=== PATIENT | female | born 1950 | race Two or more races ===

== ENCOUNTER 2021-05-26 18:46 | Inpatient (IN) | payer MEDICARE ==
--- NOTE | 2021-05-26 20:24 | ED ---
SOB HPI - General Chief Complaint: Shortness of Breath Stated Complaint: SOB Time Seen by Provider: 05/26/21 20:11 Source: patient, RN notes reviewed Mode of arrival: ambulatory Limitations: physical limitation - History of Present Illness Initial Comments: This is a pleasant 71-year-old female with a history of hypertension. She presents to the emergency department today complaining of 10 days of worsening shortness of breath. Patient really denying any chest pain but states it feels like there is a catch in her chest at times. Patient has been going to physical therapy for general weakness and imbalance. Patient states that physical therapy she was having hard time breathing. Patient eventually was told to go to the ER which she refused. Patient follow-up with her regular physician early in the week and had a chest x-ray done. Patient was called today and told it was abnormal. Patient states she is fully vaccinated against COVID-19 including the booster shot. Denying any chest or abdominal pain. No nausea or vomiting. No significant cough. No hemoptysis. No changes in vomiting urination. No change in vision or hearing. No headache. Some generalized body aches with the patient states she usually has. Patient smoking college some 40 some years ago but nothing since. MD Complaint: shortness of breath - Related Data Home Medications Medication Instructions Recorded Confirmed Cholecalciferol [Vitamin D3 (25 50 mcg PO DAILY 05/26/21 05/26/21 Mcg = 1000 Iu)] Fish Oil/Dha/Epa [Fish Oil 1,200 1 cap PO DAILY 05/26/21 05/26/21 mg Fish Oil] Magnesium 500 mg PO DAILY 05/26/21 05/26/21 Omeprazole 20 mg PO DAILY 05/26/21 05/26/21 Oxybutynin ER [Ditropan Xl] 10 mg PO DAILY 05/26/21 05/26/21 Propranolol HCl 20 mg PO DAILY 05/26/21 05/26/21 Venlafaxine HCl ER [Effexor XR] 300 mg PO DAILY 05/26/21 05/26/21 buPROPion XL [Wellbutrin XL] 150 mg PO DAILY 05/26/21 05/26/21 traZODone HCL 100 mg PO HS 05/26/21 05/26/21 Previous Rx's Medication Instructions Recorded Apixaban [Eliquis] 10 mg PO BID #90 tab 05/30/21 Allergies Allergy/AdvReac Type Severity Reaction Status Date / Time azithromycin [From Zithromax] Allergy Anaphylaxis Verified 05/26/21 21:59 latex Allergy Rash/Hives Verified 05/26/21 21:59 Review of Systems ROS Statement: Those systems with pertinent positive or pertinent negative responses have been documented in the HPI. ROS Other: All systems not noted in ROS Statement are negative. Past Medical History Past Medical History: Hypertension Additional Past Medical History / Comment(s): LIME, liver problems History of Any Multi-Drug Resistant Organisms: None Reported Past Surgical History: Bladder Surgery, Joint Replacement Additional Past Surgical History / Comment(s): lt knee Past Psychological History: No Psychological Hx Reported Smoking Status: Never smoker Past Alcohol Use History: Occasional Past Drug Use History: Marijuana General Exam - General Exam Comments Initial Comments: 71-year-old female appears to be mild distress. Ill but not toxic. Vital signs reviewed Limitations: physical limitation General appearance: alert, in distress, obese Head exam: Present: atraumatic, normocephalic, normal inspection Eye exam: Present: normal appearance, PERRL, EOMI. Absent: scleral icterus, conjunctival injection, periorbital swelling ENT exam: Present: normal exam, mucous membranes moist Neck exam: Present: normal inspection. Absent: tenderness, meningismus, lymphadenopathy Respiratory exam: Present: normal lung sounds bilaterally, rales, accessory muscle use, other (Mild increased work of breathing. Patient on a nasal cannula satting in the low 90s.). Absent: respiratory distress, wheezes, rhonchi, stridor Cardiovascular Exam: Present: normal rhythm, tachycardia, normal heart sounds. Absent: systolic murmur, diastolic murmur, rubs, gallop, clicks GI/Abdominal exam: Present: soft, normal bowel sounds. Absent: distended, tenderness, guarding, rebound, rigid Extremities exam: Present: normal inspection, full ROM, normal capillary refill. Absent: tenderness, pedal edema, joint swelling, calf tenderness Back exam: Present: normal inspection Neurological exam: Present: alert, oriented X3, CN II-XII intact Psychiatric exam: Present: normal affect, normal mood Skin exam: Present: warm, dry, intact, normal color. Absent: rash Course Vital Signs 05/26/21 05/26/21 05/26/21 19:25 19:48 20:32 Temperature 97.9 F Pulse Rate 115 H 100 Respiratory 26 H 19 25 H Rate Blood Pressure 154/87 173/91 O2 Sat by Pulse 86 L 95 Oximetry 05/26/21 05/26/21 05/26/21 21:50 23:30 23:40 Temperature Pulse Rate 98 93 97 Respiratory 13 Rate Blood Pressure 167/92 152/100 184/91 O2 Sat by Pulse 91 L 94 L 95 Oximetry 05/27/21 00:10 Temperature Pulse Rate 93 Respiratory Rate Blood Pressure 154/91 O2 Sat by Pulse 93 L Oximetry - Reevaluation(s) Reevaluation #1: 05/26/21 21:51 Medical record is reviewed Patient has an elevated troponin I 0.084. CT Angio chest ordered. Patient is informed of results and questions answered Patient in no distress Reevaluation #2: 05/26/21 23:08 Medical record is reviewed Symptoms are improved here in the emergency department Patient is informed of results and questions answered Patient in no distress Medical Decision Making - Medical Decision Making Differential includes cardiovascular disease, pulmonary embolism, pneumonia, other infectious versus inflammatory etiology. Consultation placed for the internal medicine physician, Dr. Benedict The case was discussed in detail with ED attending physician. Presentation, findings, treatment plan discussed in detail. Case discussed in detail with the admitting physician. Requests consultation with pulmonary medicine. - Lab Data Result diagrams: 05/28/21 06:50 05/28/21 06:50 Lab Results 05/26/21 05/26/21 05/26/21 Range/Units 20:12 20:12 20:12 WBC 12.1 H (3.8-10.6) k/uL RBC 5.00 (3.80-5.40) m/uL Hgb 14.8 (11.4-16.0) gm/dL Hct 44.1 (34.0-46.0) % MCV 88.2 (80.0-100.0) fL MCH 29.6 (25.0-35.0) pg MCHC 33.6 (31.0-37.0) g/dL RDW 14.5 (11.5-15.5) % Plt Count 285 (150-450) k/uL MPV 7.7 Neutrophils % 77 % Lymphocytes % 14 % Monocytes % 5 % Eosinophils % 2 % Basophils % 0 % Neutrophils # 9.4 H (1.3-7.7) k/uL Lymphocytes # 1.6 (1.0-4.8) k/uL Monocytes # 0.6 (0-1.0) k/uL Eosinophils # 0.3 (0-0.7) k/uL Basophils # 0.1 (0-0.2) k/uL PT 10.0 (9.0-12.0) sec INR 0.9 (<1.2) APTT 22.9 (22.0-30.0) sec Sample Site ABG pH (7.35-7.45) ABG pCO2 (35-45) mmHg ABG pO2 (83-108) mmHg ABG HCO3 (21-25) mmol/L ABG Total CO2 (19-24) mmol/L ABG O2 Saturation (94-97) % ABG Base Excess mmol/L Tyler Test FiO2 % Sodium 140 (137-145) mmol/L Potassium 4.0 (3.5-5.1) mmol/L Chloride 107 (98-107) mmol/L Carbon Dioxide 24 (22-30) mmol/L Anion Gap 9 mmol/L BUN 22 H (7-17) mg/dL Creatinine 0.62 (0.52-1.04) mg/dL Est GFR (CKD-EPI)AfAm >90 (>60 ml/min/1.73 sqM) Est GFR (CKD-EPI)NonAf 90 (>60 ml/min/1.73 sqM) Glucose 117 H (74-99) mg/dL Plasma Lactic Acid Ji (0.7-2.0) mmol/L Calcium 10.2 (8.4-10.2) mg/dL Magnesium 1.9 (1.6-2.3) mg/dL Total Bilirubin 1.1 (0.2-1.3) mg/dL AST 30 (14-36) U/L ALT 31 (4-34) U/L Alkaline Phosphatase 80 (38-126) U/L Troponin I (0.000-0.034) ng/mL NT-Pro-B Natriuret Pep pg/mL Total Protein 7.7 (6.3-8.2) g/dL Albumin 4.7 (3.5-5.0) g/dL Coronavirus (PCR) (Not Detectd) Influenza Type A RNA (Not Detectd) Influenza Type B (PCR) (Not Detectd) 01/27/22 01/27/22 01/27/22 Range/Units 20:12 20:12 20:12 WBC (3.8-10.6) k/uL RBC (3.80-5.40) m/uL Hgb (11.4-16.0) gm/dL Hct (34.0-46.0) % MCV (80.0-100.0) fL MCH (25.0-35.0) pg MCHC (31.0-37.0) g/dL RDW (11.5-15.5) % Plt Count (150-450) k/uL MPV Neutrophils % % Lymphocytes % % Monocytes % % Eosinophils % % Basophils % % Neutrophils # (1.3-7.7) k/uL Lymphocytes # (1.0-4.8) k/uL Monocytes # (0-1.0) k/uL Eosinophils # (0-0.7) k/uL Basophils # (0-0.2) k/uL PT (9.0-12.0) sec INR (<1.2) APTT (22.0-30.0) sec Sample Site ABG pH (7.35-7.45) ABG pCO2 (35-45) mmHg ABG pO2 (83-108) mmHg ABG HCO3 (21-25) mmol/L ABG Total CO2 (19-24) mmol/L ABG O2 Saturation (94-97) % ABG Base Excess mmol/L Tyler Test FiO2 % Sodium (137-145) mmol/L Potassium (3.5-5.1) mmol/L Chloride (98-107) mmol/L Carbon Dioxide (22-30) mmol/L Anion Gap mmol/L BUN (7-17) mg/dL Creatinine (0.52-1.04) mg/dL Est GFR (CKD-EPI)AfAm (>60 ml/min/1.73 sqM) Est GFR (CKD-EPI)NonAf (>60 ml/min/1.73 sqM) Glucose (74-99) mg/dL Plasma Lactic Acid Ji 1.1 (0.7-2.0) mmol/L Calcium (8.4-10.2) mg/dL Magnesium (1.6-2.3) mg/dL Total Bilirubin (0.2-1.3) mg/dL AST (14-36) U/L ALT (4-34) U/L Alkaline Phosphatase (38-126) U/L Troponin I 0.084 H* (0.000-0.034) ng/mL NT-Pro-B Natriuret Pep 538 pg/mL Total Protein (6.3-8.2) g/dL Albumin (3.5-5.0) g/dL Coronavirus (PCR) (Not Detectd) Influenza Type A RNA (Not Detectd) Influenza Type B (PCR) (Not Detectd) 05/26/21 05/26/21 05/26/21 Range/Units 20:13 20:13 20:41 WBC (3.8-10.6) k/uL RBC (3.80-5.40) m/uL Hgb (11.4-16.0) gm/dL Hct (34.0-46.0) % MCV (80.0-100.0) fL MCH (25.0-35.0) pg MCHC (31.0-37.0) g/dL RDW (11.5-15.5) % Plt Count (150-450) k/uL MPV Neutrophils % % Lymphocytes % % Monocytes % % Eosinophils % % Basophils % % Neutrophils # (1.3-7.7) k/uL Lymphocytes # (1.0-4.8) k/uL Monocytes # (0-1.0) k/uL Eosinophils # (0-0.7) k/uL Basophils # (0-0.2) k/uL PT (9.0-12.0) sec INR (<1.2) APTT (22.0-30.0) sec Sample Site R radial ABG pH 7.46 H (7.35-7.45) ABG pCO2 35 (35-45) mmHg ABG pO2 70 L (83-108) mmHg ABG HCO3 25 (21-25) mmol/L ABG Total CO2 26 H (19-24) mmol/L ABG O2 Saturation 95.0 (94-97) % ABG Base Excess 1.0 mmol/L Tyler Test Yes FiO2 28 % Sodium (137-145) mmol/L Potassium (3.5-5.1) mmol/L Chloride (98-107) mmol/L Carbon Dioxide (22-30) mmol/L Anion Gap mmol/L BUN (7-17) mg/dL Creatinine (0.52-1.04) mg/dL Est GFR (CKD-EPI)AfAm (>60 ml/min/1.73 sqM) Est GFR (CKD-EPI)NonAf (>60 ml/min/1.73 sqM) Glucose (74-99) mg/dL Plasma Lactic Acid Ji (0.7-2.0) mmol/L Calcium (8.4-10.2) mg/dL Magnesium (1.6-2.3) mg/dL Total Bilirubin (0.2-1.3) mg/dL AST (14-36) U/L ALT (4-34) U/L Alkaline Phosphatase (38-126) U/L Troponin I (0.000-0.034) ng/mL NT-Pro-B Natriuret Pep pg/mL Total Protein (6.3-8.2) g/dL Albumin (3.5-5.0) g/dL Coronavirus (PCR) Not Detected (Not Detectd) Influenza Type A RNA Not Detected (Not Detectd) Influenza Type B (PCR) Not Detected (Not Detectd) 05/26/21 05/27/21 05/27/21 Range/Units 23:33 01:39 06:44 WBC 8.1 (3.8-10.6) k/uL RBC 4.56 (3.80-5.40) m/uL Hgb 13.6 (11.4-16.0) gm/dL Hct 40.6 (34.0-46.0) % MCV 89.1 (80.0-100.0) fL MCH 29.9 (25.0-35.0) pg MCHC 33.6 (31.0-37.0) g/dL RDW 15.1 (11.5-15.5) % Plt Count 201 (150-450) k/uL MPV 8.0 Neutrophils % 75 % Lymphocytes % 16 % Monocytes % 6 % Eosinophils % 2 % Basophils % 0 % Neutrophils # 6.0 (1.3-7.7) k/uL Lymphocytes # 1.3 (1.0-4.8) k/uL Monocytes # 0.5 (0-1.0) k/uL Eosinophils # 0.2 (0-0.7) k/uL Basophils # 0.0 (0-0.2) k/uL PT (9.0-12.0) sec INR (<1.2) APTT (22.0-30.0) sec Sample Site ABG pH (7.35-7.45) ABG pCO2 (35-45) mmHg ABG pO2 (83-108) mmHg ABG HCO3 (21-25) mmol/L ABG Total CO2 (19-24) mmol/L ABG O2 Saturation (94-97) % ABG Base Excess mmol/L Tyler Test FiO2 % Sodium (137-145) mmol/L Potassium (3.5-5.1) mmol/L Chloride (98-107) mmol/L Carbon Dioxide (22-30) mmol/L Anion Gap mmol/L BUN (7-17) mg/dL Creatinine (0.52-1.04) mg/dL Est GFR (CKD-EPI)AfAm (>60 ml/min/1.73 sqM) Est GFR (CKD-EPI)NonAf (>60 ml/min/1.73 sqM) Glucose (74-99) mg/dL Plasma Lactic Acid Ji (0.7-2.0) mmol/L Calcium (8.4-10.2) mg/dL Magnesium (1.6-2.3) mg/dL Total Bilirubin (0.2-1.3) mg/dL AST (14-36) U/L ALT (4-34) U/L Alkaline Phosphatase (38-126) U/L Troponin I 0.071 H* 0.057 H* (0.000-0.034) ng/mL NT-Pro-B Natriuret Pep pg/mL Total Protein (6.3-8.2) g/dL Albumin (3.5-5.0) g/dL Coronavirus (PCR) (Not Detectd) Influenza Type A RNA (Not Detectd) Influenza Type B (PCR) (Not Detectd) 05/27/21 Range/Units 06:44 WBC (3.8-10.6) k/uL RBC (3.80-5.40) m/uL Hgb (11.4-16.0) gm/dL Hct (34.0-46.0) % MCV (80.0-100.0) fL MCH (25.0-35.0) pg MCHC (31.0-37.0) g/dL RDW (11.5-15.5) % Plt Count (150-450) k/uL MPV Neutrophils % % Lymphocytes % % Monocytes % % Eosinophils % % Basophils % % Neutrophils # (1.3-7.7) k/uL Lymphocytes # (1.0-4.8) k/uL Monocytes # (0-1.0) k/uL Eosinophils # (0-0.7) k/uL Basophils # (0-0.2) k/uL PT (9.0-12.0) sec INR (<1.2) APTT (22.0-30.0) sec Sample Site ABG pH (7.35-7.45) ABG pCO2 (35-45) mmHg ABG pO2 (83-108) mmHg ABG HCO3 (21-25) mmol/L ABG Total CO2 (19-24) mmol/L ABG O2 Saturation (94-97) % ABG Base Excess mmol/L Tyler Test FiO2 % Sodium 137 (137-145) mmol/L Potassium 3.8 (3.5-5.1) mmol/L Chloride 106 (98-107) mmol/L Carbon Dioxide 25 (22-30) mmol/L Anion Gap 6 mmol/L BUN 20 H (7-17) mg/dL Creatinine 0.61 (0.52-1.04) mg/dL Est GFR (CKD-EPI)AfAm >90 (>60 ml/min/1.73 sqM) Est GFR (CKD-EPI)NonAf >90 (>60 ml/min/1.73 sqM) Glucose 143 H (74-99) mg/dL Plasma Lactic Acid Ji (0.7-2.0) mmol/L Calcium 9.2 (8.4-10.2) mg/dL Magnesium 1.7 (1.6-2.3) mg/dL Total Bilirubin 1.3 (0.2-1.3) mg/dL AST 26 (14-36) U/L ALT 27 (4-34) U/L Alkaline Phosphatase 77 (38-126) U/L Troponin I (0.000-0.034) ng/mL NT-Pro-B Natriuret Pep pg/mL Total Protein 6.8 (6.3-8.2) g/dL Albumin 3.9 (3.5-5.0) g/dL Coronavirus (PCR) (Not Detectd) Influenza Type A RNA (Not Detectd) Influenza Type B (PCR) (Not Detectd) - EKG Data EKG Comments: EKG reveals sinus tachycardia with a rate of 103. Possible left atrial enlargement. Baseline artifact. Normal intervals. Left axis deviation. Poor R-wave progression. Nonspecific ST changes, EKG reviewed with the ED attending physician, Dr. Edwards Disposition Clinical Impression: Pulmonary embolism, Respiratory distress, Hypoxemia, Elevated troponin Disposition: ADMITTED IP TO THIS HOSP Condition: Stable Decision to Admit Reason: Admit from EC Decision Time: 23:21
[2021-05-26 20:40] LABS: Basophils # (A) 0.1 k/uL (0-0.2); Basophils % (A) 0 %; Eosinophils # (A) 0.3 k/uL (0-0.7); Eosinophils % (A) 2 %; HCT 44.1 % (34.0-46.0); HGB 14.8 gm/dL (11.4-16.0); Lymphocytes # (A) 1.6 k/uL (1.0-4.8); Lymphocytes % (A) 14 %; MCH 29.6 pg (25.0-35.0); MCHC 33.6 g/dL (31.0-37.0); MCV 88.2 fL (80.0-100.0); Mean Platelet Volume 7.7; Monocytes # (A) 0.6 k/uL (0-1.0); Monocytes % (A) 5 %; Neutrophils # (A) 9.4 k/uL (1.3-7.7); Neutrophils % (A) 77 %; Platelet Count 285 k/uL (150-450); RDW 14.5 % (11.5-15.5); WBC 12.1 k/uL (3.8-10.6)
[2021-05-26 20:44] LABS: Allen Test Performed? Yes
[2021-05-26 20:51] LABS: INR 0.9 (<1.2); Partial Thromboplastin Time 22.9 sec (22.0-30.0)
[2021-05-26 20:52] LABS: ALT 31 U/L (4-34); AST 30 U/L (14-36); African American GFR (CKD) >90 (>60 ml/min/1.73 sqM); Albumin 4.7 g/dL (3.5-5.0); Alkaline Phosphatase 80 U/L (38-126); Anion Gap 9 mmol/L; Blood Urea Nitrogen 22 mg/dL (7-17); Calcium 10.2 mg/dL (8.4-10.2); Carbon Dioxide 24 mmol/L (22-30); Chloride 107 mmol/L (98-107); Glucose 117 mg/dL (74-99); Magnesium 1.9 mg/dL (1.6-2.3); Non-African American GFR(CKD) 90 (>60 ml/min/1.73 sqM); Sodium 140 mmol/L (137-145); Total Bilirubin 1.1 mg/dL (0.2-1.3); Total Protein 7.7 g/dL (6.3-8.2)
[2021-05-26 21:05] LABS: ABG HCO3 25 mmol/L (21-25); ABG PCO2 35 mmHg (35-45); ABG PH 7.46 (7.35-7.45); ABG PO2 70 mmHg (83-108); ABG TCO2 26 mmol/L (19-24)
[2021-05-26] MEDS ORDERED: ASPIRIN 81 MG PO STA (21:28)
--- NOTE | 2021-05-26 21:42 | XR ---
EXAMINATION: XR chest 1V portable DATE AND TIME: 05/26/2021 8:37 PM CLINICAL INDICATION: PHH; Dyspnea TECHNIQUE: AP upright portable COMPARISON: None FINDINGS: The overlying soft tissues are prominent. The lungs are clear. The pleural spaces are negative. The cardiac silhouette is not enlarged. The remainder of the mediastinal silhouette is unremarkable. The skeletal structures and soft tissues are negative for acute findings. IMPRESSION: NO ACUTE PROCESS.
--- NOTE | 2021-05-26 22:32 | CT ---
EXAMINATION TYPE: CT angio chest DATE OF EXAM: 05/26/2021 COMPARISON: None HISTORY: sob CT DLP: 771.7 mGycm Automated exposure control for dose reduction was used. CONTRAST: Performed with IV Contrast, patient injected with 100 mL of Isovue 370. Images obtained from the thoracic inlet to the diaphragm with IV contrast. FINDINGS: There is some mild increased interstitial density in the posterior lung wilson. There is no pulmonary consolidation. There is no evidence of a pulmonary mass. There are multiple filling defects in the lower lobe pulmonary arteries bilaterally. There is also fi lling defect in the lingula left upper lobe pulmonary artery. Heart size is fairly normal. There is no pericardial effusion. There is no pleural effusion. Thoracic spine is intact. There is no compression fracture. Sternum is intact. IMPRESSION: Multiple bilateral pulmonary emboli. No evidence of right heart strain.
[2021-05-26] MEDS ORDERED: ENOXAPARIN 40 MG/0.4 ML SYRINGE SQ SCH (22:45)
[2021-05-26] MEDS ORDERED: ACETAMINOPHEN TAB 325 MG TAB PO PRN (23:23)
[2021-05-26] MEDS ORDERED: ONDANSETRON 4 MG/2 ML VIAL IVP PRN (23:23)
[2021-05-26] MEDS ORDERED: NALOXONE 0.4 MG/ML 1 ML VIAL IV PRN (23:23)
[2021-05-26] MEDS ORDERED: MORPHINE SULFATE 4 MG/ML SYRINGE IV PRN (23:23)
[2021-05-26] MEDS ORDERED: PANTOPRAZOLE 40 MG/10 ML VIAL IV SCH (23:30)
[2021-05-27] MEDS: PANTOPRAZOLE 40 MG TABLET PO SCH (06:41)
[2021-05-27 07:38] LABS: Basophils % (A) 0 %; Eosinophils # (A) 0.2 k/uL (0-0.7); Eosinophils % (A) 2 %; HCT 40.6 % (34.0-46.0); HGB 13.6 gm/dL (11.4-16.0); Lymphocytes # (A) 1.3 k/uL (1.0-4.8); Lymphocytes % (A) 16 %; MCH 29.9 pg (25.0-35.0); MCHC 33.6 g/dL (31.0-37.0); MCV 89.1 fL (80.0-100.0); Monocytes # (A) 0.5 k/uL (0-1.0); Monocytes % (A) 6 %; Neutrophils % (A) 75 %; Platelet Count 201 k/uL (150-450); RBC 4.56 m/uL (3.80-5.40); RDW 15.1 % (11.5-15.5); WBC 8.1 k/uL (3.8-10.6)
[2021-05-27 08:05] LABS: ALT 27 U/L (4-34); AST 26 U/L (14-36); African American GFR (CKD) >90 (>60 ml/min/1.73 sqM); Albumin 3.9 g/dL (3.5-5.0); Alkaline Phosphatase 77 U/L (38-126); Anion Gap 6 mmol/L; Blood Urea Nitrogen 20 mg/dL (7-17); Calcium 9.2 mg/dL (8.4-10.2); Carbon Dioxide 25 mmol/L (22-30); Chloride 106 mmol/L (98-107); Magnesium 1.7 mg/dL (1.6-2.3); Non-African American GFR(CKD) >90 (>60 ml/min/1.73 sqM); Potassium 3.8 mmol/L (3.5-5.1); Sodium 137 mmol/L (137-145); Total Bilirubin 1.3 mg/dL (0.2-1.3); Total Protein 6.8 g/dL (6.3-8.2)
[2021-05-27 08:07] LABS: Glucose 143 mg/dL (74-99)
[2021-05-27] MEDS: CHOLECALCIFEROL 25 MCG (1000 IU) TABLET PO SCH (08:24)
[2021-05-27] MEDS: VENLAFAXINE HCL ER 150 MG CAP PO SCH (08:24)
[2021-05-27] MEDS: buPROPion XL 150 MG TAB.ER.24H PO SCH (08:24)
[2021-05-27] MEDS: ENOXAPARIN 100 MG/ML SYRINGE SQ SCH ×2 (08:24→20:50)
[2021-05-27] MEDS: OXYBUTYNIN 10 MG TAB.ER.24 PO SCH (08:24)
[2021-05-27] MEDS: MAGNESIUM OXIDE 400 MG TAB PO SCH (08:25)
[2021-05-27] MEDS: PROPRANOLOL 20 MG TAB PO SCH (08:25)
[2021-05-27] MEDS ORDERED: NON FORMULARY DRUG (Fish Oil/Dha/Epa [Fish Oil 1,200 Mg Fish Oil] 1 EACH Capsule) PO SCH (09:00)
--- NOTE | 2021-05-27 11:39 | ECHOF ---
Referral Reason:lvfunction MEASUREMENTS -------- HEIGHT: 160.0 cm WEIGHT: 99.8 kg BP: 152/92 IVSd: 1.5 cm (0.6 - 1.1) LVIDd: 4.0 cm (3.9 - 5.3) LVPWd: 1.5 cm (0.6 - 1.1) EDV(Teich): 70 ml IVSs: 1.9 cm LVIDs: 2.8 cm LVPWs: 1.8 cm %IVS Thck: 26 % ESV(Teich): 30 ml EF(Teich): 57 % %FS: 29 % SV(Teich): 40 ml LA Diam: 3.7 cm (2.7 - 3.8) RVIDd: 3.7 cm (< 3.3) LALs A4C: 5.3 cm LAAs A4C: 17.6 cm LAESV A-L A4C: 50 ml LAESV MOD A4C: 47 ml LALs A2C: 5.3 cm LAAs A2C: 19.5 cm LAESV A-L A2C: 61 ml LAESV MOD A2C: 58 ml LAESV(A-L): 55 ml LAESV Index (A-L): 27.37 ml/m Ao Diam: 3.0 cm (2.0 - 3.7) AV Cusp: 2.3 cm (1.5 - 2.6) EPSS: 0.8 cm MV E Deven: 0.62 m/s MV DecT: 148 ms MV Dec [place]: 4.2 m/s MV A Deven: 1.10 m/s MV E/A Ratio: 0.57 MV PHT: 43 ms AV Vmax: 1.30 m/s AV maxP.77 mmHg TR Vmax: 3.53 m/s TR maxP.76 mmHg RAP: 5.00 mmHg RVSP: 54.76 mmHg MV EF SLOPE: 109.83 mm/s (70 - 150) MV EXCURSION: 19.44 mm (> 18.000) RV S Prime: 0.09 m/s TAPSE: 12.10 mm FINDINGS -------- Sinus rhythm. This was a technically adequate study. The left ventricular size is normal. There is moderate concentric left ventricular hypertrophy. O verall left ventricular systolic function is normal with, an EF between 60 - 65 %. The right ventricle is mild to moderately enlarged. Normal LA size by volume 22+/-6 ml/m2. The right atrium is normal in size. Interatrial and interventricular septum intact. The aortic valve is trileaflet, and appears structurally normal. No aortic stenosis or regurgitation. There is trace to mild mitral regurgitation. Mild tricuspid regurgitation present. There is severe pulmonary hypertension. The right ventricul ar systolic pressure, as measured by Doppler, is 54.76mmHg. The pulmonic valve is normal. The aortic root size is normal. IVC Not well visulized. There is no pericardial effusion. CONCLUSIONS -------- 1. The left ventricular size is normal. 2. There is moderate concentric left ventricular hypertrophy. 3. Overall left ventricular systolic function is normal with, an EF between 60 - 65 %. 4. The right ventricle is mild to moderately enlarged. 5. The aortic valve is trileaflet, and appears structurally normal. No aortic stenosis or regurgitati on. 6. There is trace to mild mitral regurgitation. 7. Mild tricuspid regurgitation present. 8. There is severe pulmonary hypertension. 9. The right ventricular systolic pressure, as measured by Doppler, is 54.76mmHg. 10. There is no pericardial effusion. TERMINAL SUPERVISOR: Di Reyes RDCS
--- NOTE | 2021-05-27 12:03 | US ---
EXAMINATION TYPE: US venous doppler duplex LE BI DATE OF EXAM: 05/27/2021 11:01 AM COMPARISON: NONE CLINICAL HISTORY: 71-year-old female with pulmonary embolus. Assess for potential source with any manasa t in the legs. SIDE PERFORMED: Bilateral TECHNIQUE: The lower extremity deep venous system is examined utilizing real time linear array sonog valdemar with graded compression, doppler sonography and color-flow sonography. FINDINGS: VESSELS IMAGED: Common Femoral Vein Deep Femoral Vein Greater Saphenous Vein * Femoral Vein Popliteal Vein Small Saphenous Vein * Proximal Calf Veins (* superficial vessels) Right Leg: Negative for DVT Left Leg: Negative for DVT IMPRESSION: No evidence for DVT within the bilateral lower extremities imaged from the groin to the upper calves.
--- NOTE | 2021-05-27 12:20 | P.CRDCN ---
History of Present Illness Consult date: 05/27/21 History of present illness: HISTORY OF PRESENT ILLNESS: This is a 71-year-old female with a past medical history significant for nonischemic cardiomyopathy with a previous EF of 20% following an episode of bronchitis with recovery of her LV function. Patient states her last two echos at her cardiology office have been normal. Patient follows with Dr. Valencia in [place]. We have been asked to see the patient in consultation for abnormal troponins. Patient examined at the bedside. Patient states she has have worsening shortness of breath over the past 10 days. She denies any recent illness. Patient was found to have bilateral pulmonary embolisms. Patient denies any history of DVT or PE. She denies any prolonged immobility or travel. Denies any family history of clotting disorders. Denies history of cancer. Patient denies any history of Covid. Patient states she did receive her vaccine and her booster. She received the booster in February 2021. EKG reveals sinus tachycardia with nonspecific ST-T wave changes Chest xray negative for acute process Chest CT: Multiple bilateral pulmonary emboli. No evidence of right heart strain Laboratory data: The WBC 8.1. Hemoglobin 13.6. Platelet count 201. Sodium 137. Potassium 3.8. BUN 20. Creatinine 0.61. ProBNP 538. Troponin 0.084. 0.071. 0.057. Current home cardiac medications include propanolol 20 mg daily and aspirin 325 mg daily REVIEW OF SYSTEMS: At the time of my exam: CONSTITUTIONAL: Denies fever or chills. HEENT: Denies blurred vision, vision changes, or eye pain. Denies hemoptysis CARDIOVASCULAR: Denies chest pain. Denies orthopnea. Denies PND. Denies palpitations RESPIRATORY: Denies shortness of breath. GASTROINTESTINAL: Denies abdominal pain. Denies nausea or vomiting. HEMATOLOGIC: Denies bleeding disorders. GENITOURINARY: Denies any blood in urine. SKIN: Denies pruitis. Denies rash. PHYSICAL EXAM: VITAL SIGNS: Reviewed. GENERAL: Well-developed in no acute distress. HEENT: Head is normocephalic. Pupils are equal, round. Sclerae anicteric. Mucous membranes of the mouth are moist. Neck supple. No JVD or thyromegaly LUNGS: Respirations even and unlabored. Lungs essentially clear to auscultation bilaterally. HEART: Regular rate and rhythm. S1 and S2 heard. ABDOMEN: Soft. Nondistended. Nontender. EXTREMITIES: Normal range of motion. No clubbing or cyanosis. Peripheral pulses intact. No lower extremity edema NEUROLOGIC: Awake and alert. Oriented x 3. ASSESSMENT: Shortness of breath Bilateral pulmonary emboli Abnormal troponins, secondary to above History of nonischemic cardiomyopathy with EF of 20%, with subsequent recovery of LV function PLAN: Obtain 2D echo to assess cardiac structure and function. Rule out right out strain. Continue Lovenox. Do not transition to oral anticoagulation until echo is performed Further recommendations pending patient course Nurse practitioner note has been reviewed by physician. Signing provider agrees with the documented findings, assessment, and plan of care. Past Medical History Past Medical History: Hypertension Additional Past Medical History / Comment(s): [facility] [place], liver problems History of Any Multi-Drug Resistant Organisms: None Reported Past Surgical History: Bladder Surgery, Joint Replacement Additional Past Surgical History / Comment(s): lt knee Past Anesthesia/Blood Transfusion Reactions: No Reported Reaction Past Psychological History: Depression Smoking Status: Former smoker Past Alcohol Use History: Occasional Additional Past Alcohol Use History / Comment(s): Pt states she somked briefly in college. No smoking since then. Past Drug Use History: Marijuana Additional Drug Use History / Comment(s): Pt states she uses marijuana occasi onally. Medications and Allergies Home Medications Medication Instructions Recorded Confirmed Type Aspirin EC [Ecotrin] 325 mg PO DAILY 05/26/21 05/26/21 History Cholecalciferol [Vitamin D3 (25 50 mcg PO DAILY 05/26/21 05/26/21 History Mcg = 1000 Iu)] Fish Oil/Dha/Epa [Fish Oil 1,200 1 cap PO DAILY 05/26/21 05/26/21 History mg Fish Oil] Magnesium 500 mg PO DAILY 05/26/21 05/26/21 History Omeprazole 20 mg PO DAILY 05/26/21 05/26/21 History Oxybutynin ER [Ditropan Xl] 10 mg PO DAILY 05/26/21 05/26/21 History Propranolol HCl 20 mg PO DAILY 05/26/21 05/26/21 History Venlafaxine HCl ER [Effexor Xr] 300 mg PO DAILY 05/26/21 05/26/21 History buPROPion XL [Wellbutrin XL] 150 mg PO DAILY 05/26/21 05/26/21 History traZODone HCL 100 mg PO HS 05/26/21 05/26/21 History Allergies Allergy/AdvReac Type Severity Reaction Status Date / Time azithromycin [From Zithromax] Allergy Anaphylaxis Verified 05/26/21 21:59 latex Allergy Rash/Hives Verified 05/26/21 21:59 Physical Exam Vitals: Vital Signs Temp Pulse Pulse Resp BP BP Pulse Ox 05/27/21 07:55 97.9 F 92 18 158/82 94 L 05/27/21 04:00 98.3 F 94 18 152/92 94 L 05/27/21 02:00 98.3 F 88 18 163/89 93 L 05/27/21 00:10 93 154/91 93 L 05/26/21 23:40 97 184/91 95 05/26/21 23:30 93 152/100 94 L 05/26/21 21:50 98 13 167/92 91 L 05/26/21 20:32 100 25 H 173/91 95 05/26/21 19:48 19 05/26/21 19:25 97.9 F 115 H 26 H 154/87 86 L Intake and Output 05/26/21 05/27/21 05/27/21 22:59 06:59 14:59 Intake Total 10 240 Balance 10 240 Intake: IV 10 Invasive Line 1 10 Oral 240 Other: Voiding Method Toilet # Voids 1 1 Weight 99.79 kg 99.79 kg Results 05/27/21 06:44 05/27/21 06:44 Cardiac Enzymes 05/26/21 05/26/21 05/26/21 Range/Units 20:12 20:12 23:33 AST 30 (14-36) U/L Troponin I 0.084 H* 0.071 H* (0.000-0.034) ng/mL 05/27/21 05/27/21 Range/Units 01:39 06:44 AST 26 (14-36) U/L Troponin I 0.057 H* (0.000-0.034) ng/mL Coagulation 05/26/21 Range/Units 20:12 PT 10.0 (9.0-12.0) sec APTT 22.9 (22.0-30.0) sec CBC 01/27/22 01/28/22 Range/Units 20:12 06:44 WBC 12.1 H 8.1 (3.8-10.6) k/uL RBC 5.00 4.56 (3.80-5.40) m/uL Hgb 14.8 13.6 (11.4-16.0) gm/dL Hct 44.1 40.6 (34.0-46.0) % Plt Count 285 201 (150-450) k/uL Comprehensive Metabolic Panel 05/26/21 05/27/21 Range/Units 20:12 06:44 Sodium 140 137 (137-145) mmol/L Potassium 4.0 3.8 (3.5-5.1) mmol/L Chloride 107 106 (98-107) mmol/L Carbon Dioxide 24 25 (22-30) mmol/L BUN 22 H 20 H (7-17) mg/dL Creatinine 0.62 0.61 (0.52-1.04) mg/dL Glucose 117 H 143 H (74-99) mg/dL Calcium 10.2 9.2 (8.4-10.2) mg/dL AST 30 26 (14-36) U/L ALT 31 27 (4-34) U/L Alkaline Phosphatase 80 77 (38-126) U/L Total Protein 7.7 6.8 (6.3-8.2) g/dL Albumin 4.7 3.9 (3.5-5.0) g/dL Current Medications Generic Name Dose Route Start Last Admin Trade Name Freq PRN Reason Stop Dose Admin Acetaminophen 650 mg 05/26/21 23:23 Acetaminophen Tab 325 Mg Tab PO Q6HR PRN Mild Pain or Fever > 100.5 Bupropion HCl 150 mg 05/27/21 09:00 05/27/21 08:24 Bupropion Xl 150 Mg Tab.Er.24h PO 150 mg DAILY AGUSTINA Administration Cholecalciferol 50 mcg 05/27/21 09:00 05/27/21 08:24 Cholecalciferol 25 Mcg (1000 Iu) Tablet PO 50 mcg DAILY AGUSTINA Administration Enoxaparin Sodium 100 mg 05/27/21 09:00 05/27/21 08:24 Enoxaparin 100 Mg/Ml Syringe SQ 100 mg Q12HR AGUSTINA Administration Magnesium Oxide 400 mg 05/27/21 09:00 05/27/21 08:25 Magnesium Oxide 400 Mg Tab PO 400 mg DAILY AGUSTINA Administration Morphine Sulfate 4 mg 05/26/21 23:23 Morphine Sulfate 4 Mg/Ml Syringe IV Q4HR PRN Severe Pain Naloxone HCl 0.2 mg 05/26/21 23:23 Naloxone 0.4 Mg/Ml 1 Ml Vial IV Q2M PRN Opioid Reversal Ondansetron HCl 4 mg 05/26/21 23:23 Ondansetron 4 Mg/2 Ml Vial IVP Q8HR PRN Nausea And Vomiting Oxybutynin Chloride 10 mg 05/27/21 09:00 05/27/21 08:24 Oxybutynin 10 Mg Tab.Er.24 PO 10 mg DAILY AGUSTINA Administration Pantoprazole Sodium 40 mg 05/26/21 23:30 05/26/21 23:50 Pantoprazole 40 Mg/10 Ml Vial IV 40 mg HS AGUSTINA Administration Pantoprazole Sodium 40 mg 05/27/21 07:30 05/27/21 06:41 Pantoprazole 40 Mg Tablet PO 40 mg [id number] AGUSTINA Administration Propranolol HCl 20 mg 05/27/21 09:00 05/27/21 08:25 Propranolol 20 Mg Tab PO 20 mg DAILY AGUSTINA Administration Trazodone HCl 100 mg 05/27/21 21:00 Trazodone Hcl 100 Mg Tab PO HS AGUSTINA Venlafaxine HCl 300 mg 05/27/21 09:00 05/27/21 08:24 Venlafaxine Hcl Er 150 Mg Cap PO 300 mg DAILY AGUSTINA Administration Intake and Output 05/26/21 05/27/21 05/27/21 22:59 06:59 14:59 Intake Total 10 240 Balance 10 240 Intake: IV 10 Invasive Line 1 10 Oral 240 Other: Voiding Method Toilet # Voids 1 1 Weight 99.79 kg 99.79 kg 05/27/21 06:44 05/27/21 06:44
--- NOTE | 2021-05-27 12:24 | P.HPIM ---
History of Present Illness H&P Date: 05/27/21 HISTORY OF PRESENT ILLNESS This is a 71-year-old female patient of Dr. Stoll with past medical history of hypertension, memory loss, gastroesophageal reflux disease, thyroid nodule, degenerative disc disease or spinal stenosis under the care of Dr. Ribeiro, neurologist in [place], status post steroid injections. Patient states that 1 week ago on Sunday she started having shortness of breath and saw her PCP had her blood pressure checked an x-ray of her chest was done last . She had a follow-up yesterday and was told that the chest x-ray showed a left lower lobe shadow. Patient was then sent in to the hospital for further evaluation. She does have history of driving to [place] after she received the Covid vaccine in February 2021. She denies any history of having Covid 19. Patient was found to be afebrile, heart rate 115, respiratory rate 26, blood pressure 154/87 and pulse ox 96% on room air. WBC 12.1 otherwise CBC was unremarkable. ABGs pH 7.46, pCO2 35, pO2 70, bicarb 25, total CO2 26, O2 saturation 95, base excess 1, FiO2 28. All joints were normal, BUN 22 and creatinine 0.62. Blood sugar 117. Lactic acid 1.1. Calcium 10.2, magnesium 1.9. Liver function tests were normal. Troponins 0.084, 0.071 and 0.057. Chronic virus, influenza A, influenza B all not detected. Chest x-ray reveals no acute process. CTA of the chest was positive for multiple bilateral pulmonary emboli. No evidence of right heart strain. Echocardiogram reveals EF of 60-65% with moderate left and hypertrophy, trace to mild mitral regurgitation, mild tricuspid regurgitation, severe pulmonary hypertension, RVSP 54.76 mmHg. Venous ultrasound bilateral lower extremities negative for DVT. REVIEW OF SYSTEMS Constitutional: No fever, no chills, no night sweats. No weight change. Reports weakness, Reports fatigue. No daytime sleepiness. EENT: No headache. No blurred vision or double vision, no loss of vision. No loss of Hearing, no ringing in the ears, no dizziness. No nasal drainage or congestion. No epistaxis. No sore throat. Lungs: Reportsshortness of breath, cough, no sputum production. No wheezing. Cardiovascular: No chest pain, no lower extremity edema. No palpitations. No paroxysmal nocturnal dyspnea. No orthopnea. No lightheadedness or dizziness. No syncopal episodes. Abdominal: No abdominal pain. No nausea, vomiting. No diarrhea. No constipation. No bloody or tarry stools. No loss of appetite. Genitourinary: No dysuria, increased frequency, urgency. No urinary retention. Musculoskeletal: No myalgias. Reports muscle weakness, no gait dysfunction, no frequent falls. No back pain. No neck pain. Integumentary: No wounds, no lesions. No rash or pruritus. No unusual bruising. No change in hair or nails. Neurologic: No aphasia. No facial droop. No change in mentation. No head injury. No headache. No paralysis. No paresthesia. Psychiatric: No depression. No anxiety. No mood swings. Endocrine: No abnormal blood sugars. No weight change. No excessive sweating or thirst. No cold intolerance. SOCIAL HISTORY Patient was a smoker only briefly in college. She occasionally uses marijuana. No alcohol use, no illicit drug use. She is single. 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 She has obstructive sleep apnea states she uses a weighted blanket for treatment. No nebulizer oxygen at home and no aids for ambulation. FAMILY HISTORY Father at age 53 from myocardial infarction. Mother at age 71 from breast cancer. Patient's 1 sister alive with history of lupus. She does not have any brothers. She has 2 children with no major medical problems. PHYSICAL EXAMINATION Gen: This is a 71-year-old obese female. She is resting in bed and appears to be comfortable and in no acute distress. HEENT: Head is atraumatic, normocephalic. Pupils equal, round. Sclerae is anicteric. NECK: Supple. No JVD. No lymphadenopathy. No thyromegaly. LUNGS: Clear to auscultation. No wheezes or rhonchi. No intercostal retractions. HEART: Regular rate and rhythm. No murmur. ABDOMEN: Soft. Bowel sounds are present. No masses. No tenderness. EXTREMITIES: No pedal edema. No calf tenderness. NEUROLOGICAL: Patient is awake, alert and oriented x3. Cranial nerves 2 through 12 are grossly intact. ASSESSMENT AND PLAN 1. Acute hypoxic respiratory failure secondary to acute pulmonary embolism. Continue Lovenox 100 mg subcu every 12 hours, pulmonary consult, continue oxygen therapy. 2. Elevated troponin, possible non-ST elevated myocardial infarction. Cardiology consult. 3. Hypertension. Continue propranolol 20 mg daily]. 4. History of memory loss, stable. 5. Gastroesophageal reflux disease and GI prophylaxis. Continue Protonix 40 mg oral daily 6. Degenerative disc disease or spinal stenosis under the care of neurology, stable. 7. Overactive bladder. Continue oxybutynin 10 mg daily. 8. Recurrent depression, generalized anxiety disorder. Continue Wellbutrin 150 mg daily, trazodone 100 mg at bedtime, Effexor XR 300 mg daily. 9. DVT prophylaxis. Lovenox. 10. COVID-19 testing negative. Patient has been hospitalized during a pandemic. Patient will be admitted to the hospital for a minimum of 2 night stay. DISCHARGE PLAN most likely return home.. Impression and plan of care have been directed as dictated by the signing physician. Yamileth Del Rio nurse practitioner acting as scribe for signing physician. Past Medical History Past Medical History: Hypertension Additional Past Medical History / Comment(s): [facility], liver problems History of Any Multi-Drug Resistant Organisms: None Reported Past Surgical History: Bladder Surgery, Joint Replacement Additional Past Surgical History / Comment(s): lt knee Past Anesthesia/Blood Transfusion Reactions: No Reported Reaction Past Psychological History: Depression Smoking Status: Former smoker Past Alcohol Use History: Occasional Additional Past Alcohol Use History / Comment(s): Pt states she somked briefly in college. No smoking since then. Past Drug Use History: Marijuana Additional Drug Use History / Comment(s): Pt states she uses marijuana occasionally. Medications and Allergies Home Medications Medication Instructions Recorded Confirmed Type Aspirin EC [Ecotrin] 325 mg PO DAILY 05/26/21 05/26/21 History Cholecalciferol [Vitamin D3 (25 50 mcg PO DAILY 05/26/21 05/26/21 History Mcg = 1000 Iu)] Fish Oil/Dha/Epa [Fish Oil 1,200 1 cap PO DAILY 05/26/21 05/26/21 History mg Fish Oil] Magnesium 500 mg PO DAILY 05/26/21 05/26/21 History Omeprazole 20 mg PO DAILY 05/26/21 05/26/21 History Oxybutynin ER [Ditropan Xl] 10 mg PO DAILY 05/26/21 05/26/21 History Propranolol HCl 20 mg PO DAILY 05/26/21 05/26/21 History Venlafaxine HCl ER [Effexor Xr] 300 mg PO DAILY 05/26/21 05/26/21 History buPROPion XL [Wellbutrin XL] 150 mg PO DAILY 05/26/21 05/26/21 History traZODone HCL 100 mg PO HS 05/26/21 05/26/21 History Allergies Allergy/AdvReac Type Severity Reaction Status Date / Time azithromycin [From Zithromax] Allergy Anaphylaxis Verified 05/26/21 21:59 latex Allergy Rash/Hives Verified 05/26/21 21:59 Physical Exam Vitals: Vital Signs Temp Pulse Pulse Resp BP BP Pulse Ox 05/27/21 07:55 97.9 F 92 18 158/82 94 L 05/27/21 04:00 98.3 F 94 18 152/92 94 L 05/27/21 02:00 98.3 F 88 18 163/89 93 L 05/27/21 00:10 93 154/91 93 L 05/26/21 23:40 97 184/91 95 05/26/21 23:30 93 152/100 94 L 05/26/21 21:50 98 13 167/92 91 L 05/26/21 20:32 100 25 H 173/91 95 05/26/21 19:48 19 05/26/21 19:25 97.9 F 115 H 26 H 154/87 86 L Intake and Output 05/26/21 05/27/21 05/27/21 22:59 06:59 14:59 Intake Total 10 240 Balance 10 240 Intake: IV 10 Invasive Line 1 10 Oral 240 Other: Voiding Method Toilet # Voids 1 1 Weight 99.79 kg 99.79 kg Results CBC & Chem 7: 05/27/21 06:44 05/27/21 06:44 Labs: Abnormal Lab Results - Last 24 Hours (Table) 05/26/21 05/26/21 05/26/21 Range/Units 20:12 20:12 20:12 WBC 12.1 H (3.8-10.6) k/uL Neutrophils # 9.4 H (1.3-7.7) k/uL ABG pH (7.35-7.45) ABG pO2 (83-108) mmHg ABG Total CO2 (19-24) mmol/L BUN 22 H (7-17) mg/dL Glucose 117 H (74-99) mg/dL Troponin I 0.084 H* (0.000-0.034) ng/mL 05/26/21 05/26/21 05/27/21 Range/Units 20:41 23:33 01:39 WBC (3.8-10.6) k/uL Neutrophils # (1.3-7.7) k/uL ABG pH 7.46 H (7.35-7.45) ABG pO2 70 L (83-108) mmHg ABG Total CO2 26 H (19-24) mmol/L BUN (7-17) mg/dL Glucose (74-99) mg/dL Troponin I 0.071 H* 0.057 H* (0.000-0.034) ng/mL 05/27/21 Range/Units 06:44 WBC (3.8-10.6) k/uL Neutrophils # (1.3-7.7) k/uL ABG pH (7.35-7.45) ABG pO2 (83-108) mmHg ABG Total CO2 (19-24) mmol/L BUN 20 H (7-17) mg/dL Glucose 143 H (74-99) mg/dL Troponin I (0.000-0.034) ng/mL Thrombosis Risk Factor Assmnt - Choose All That Apply Any of the Below Risk Factors Present?: Yes
[2021-05-27] MEDS ORDERED: ALTEPLASE 10 MG in SODIUM CHLORIDE 0.9% 100 ML IV ONE ×4 (15:01)
[2021-05-27] MEDS ORDERED: ALTEPLASE 2 MG VIAL (CATHFLO) IV STA (15:03)
[2021-05-27] MEDS ORDERED: LIDOCAINE 1% INJ 10MG/ML (20 ML MDV) ONE (15:07)
[2021-05-27] MEDS ORDERED: HEPARIN SOD,PORK IN 0.45% NACL 25,000 UNIT in 0.45% NACL 1 250ML.BAG IV SCH ×2 (15:15)
[2021-05-27] MEDS ORDERED: SODIUM CHLORIDE 0.9% 1,000 ML IV SCH ×2 (15:15)
[2021-05-27] MEDS ORDERED: IV FLUID CONTINUATION 1,000 ML IV ONE (15:30)
[2021-05-27] MEDS ORDERED: MIDAZOLAM 2 MG/2 ML VIAL IV ONE (16:01)
[2021-05-27] MEDS ORDERED: LIDOCAINE 1% INJ 10MG/ML (20 ML MDV) SQ ONE (16:01)
--- NOTE | 2021-05-27 16:05 | P.CNPUL ---
History of Present Illness Consult date: 05/27/21 Requesting physician: Hunter Benedict Reason for consult: dyspnea, hypoxemia, pulmonary embolism, abnormal CXR/CT Chief complaint: Shortness of breath. History of present illness: Pulmonary consult dated 05/27/2021. 71-year-old female, seen in consultation, room 382. She presented to the emergency department with complaints of shortness of breath. She apparently had 10 days of progressive and worsening shortness of breath. She denied any chest pain, but did describe a catch in the center of her chest. She does have a history of high blood pressure. She was going to physical therapy for g eneralized weakness and imbalance, and noted shortness of breath at that time. She was told initially to go to the emergency room, but she refused. She apparently had a chest x-ray that was done and was told it was abnormal. She has been fully vaccinated against coronavirus infection. In the emergency department, she was evaluated for pulmonary embolism, and was found have bilateral PE. Dopplers of the lower extremities were negative. The patient is wearing O2. She is on 2 L with saturations of 93%. Because of her echocardiogram, the primary grade teacher was consulted, and is planning to take the patient to laboratory for catheter directed TPA and ultrasonic dissolution of the clot (EKOS). The patient is a bit nervous because most of her family is out of the area. The patient is a lifelong nonsmoker. She does apparently use marijuana occasionally. She does have a history of hypertension. She also is a bit hard of hearing. Review of Systems REVIEW OF SYSTEMS: CONSTITUTIONAL: [Negative.] NEUROLOGIC: [ Negative.] HEENT: [ Negative.] CARDIAC: Catch in the center of her chest. PULMONARY: Shortness of breath on exertion. GI: [Negative.] : [Negative.] RHEUMATOLOGIC: [ Negative.] IMMUNOLOGIC: [ Negative.] ENDOCRINE: [Negative. ] DERMATOLOGIC: [Negative.] Past Medical History Past Medical History: Hypertension Additional Past Medical History / Comment(s): [place], liver problems History of Any Multi-Drug Resistant Organisms: None Reported Past Surgical History: Bladder Surgery, Joint Replacement Additional Past Surgical History / Comment(s): lt knee Past Anesthesia/Blood Transfusion Reactions: No Reported Reaction Past Psychological History: Depression Smoking Status: Former smoker Past Alcohol Use History: Occasional Additional Past Alcohol Use History / Comment(s): Pt states she somked briefly in college. No smoking since then. Past Drug Use History: Marijuana Additional Drug Use History / Comment(s): Pt states she uses marijuana occasionally. Medications and Allergies Home Medications Medication Instructions Recorded Confirmed Type Aspirin EC [Ecotrin] 325 mg PO DAILY 05/26/21 05/26/21 History Cholecalciferol [Vitamin D3 (25 50 mcg PO DAILY 05/26/21 05/26/21 History Mcg = 1000 Iu)] Fish Oil/Dha/Epa [Fish Oil 1,200 1 cap PO DAILY 05/26/21 05/26/21 History mg Fish Oil] Magnesium 500 mg PO DAILY 05/26/21 05/26/21 History Omeprazole 20 mg PO DAILY 05/26/21 05/26/21 History Oxybutynin ER [Ditropan Xl] 10 mg PO DAILY 05/26/21 05/26/21 History Propranolol HCl 20 mg PO DAILY 05/26/21 05/26/21 History Venlafaxine HCl ER [Effexor Xr] 300 mg PO DAILY 05/26/21 05/26/21 History buPROPion XL [Wellbutrin XL] 150 mg PO DAILY 05/26/21 05/26/21 History traZODone HCL 100 mg PO HS 05/26/21 05/26/21 History Allergies Allergy/AdvReac Type Severity Reaction Status Date / Time azithromycin [From Zithromax] Allergy Anaphylaxis Verified 05/26/21 21:59 latex Allergy Rash/Hives Verified 05/26/21 21:59 Physical Exam Osteopathic Statement: *. No significant issues noted on an osteopathic structural exam other than those noted in the History and Physical/Consult. Vitals: Vital Signs Temp Pulse Pulse Resp BP BP Pulse Ox 05/27/21 12:05 97.8 F 77 18 147/98 93 L 05/27/21 07:55 97.9 F 92 18 158/82 94 L 05/27/21 04:00 98.3 F 94 18 152/92 94 L 05/27/21 02:00 98.3 F 88 18 163/89 93 L 05/27/21 00:10 93 154/91 93 L 05/26/21 23:40 97 184/91 95 05/26/21 23:30 93 152/100 94 L 05/26/21 21:50 98 13 167/92 91 L 05/26/21 20:32 100 25 H 173/91 95 05/26/21 19:48 19 05/26/21 19:25 97.9 F 115 H 26 H 154/87 86 L Intake and Output 05/27/21 05/27/21 05/27/21 06:59 14:59 22:59 Intake Total 10 240 Balance 10 240 Intake: IV 10 Invasive Line 1 10 Oral 240 Other: Voiding Method Toilet # Voids 1 1 Weight 99.79 kg No acute distress, oriented 3. No respiratory distress or use of accessory muscles. HEENT examination is grossly unremarkable. Neck supple. Full range of motion. No adenopathy thyromegaly or neck vein distention. Cardiovascular examination reveals regular rhythm rate. S1-S2 normal. No S3 or S4. No discernible murmur noted. Heart rate 77 bpm. Lungs reveal clear breath sounds. Breath sounds are equal bilaterally. No adventitious lung sounds including wheezes rhonchi or crackles. Abdomen soft bowel sounds are heard. No masses or tenderness. Extremities are intact. No cyanosis clubbing or edema. Skin is without rash or lesion. Neurologic examination is brief but nonfocal. Results - Laboratory Findings CBC and BMP: 05/27/21 06:44 05/27/21 06:44 ABG ABG pH 7.46 (7.35-7.45) H 05/26/21 20:41 ABG pCO2 35 mmHg (35-45) 05/26/21 20:41 ABG pO2 70 mmHg (83-108) L 05/26/21 20:41 ABG O2 Saturation 95.0 % (94-97) 05/26/21 20:41 PT/INR, D-dimer PT 10.0 sec (9.0-12.0) 05/26/21 20:12 INR 0.9 (<1.2) 05/26/21 20:12 Abnormal lab findings: Abnormal Labs 05/26/21 05/26/21 05/26/21 20:12 20:12 20:12 WBC 12.1 H Neutrophils # 9.4 H ABG pH ABG pO2 ABG Total CO2 BUN 22 H Glucose 117 H Troponin I 0.084 H* 05/26/21 05/26/21 05/27/21 20:41 23:33 01:39 WBC Neutrophils # ABG pH 7.46 H ABG pO2 70 L ABG Total CO2 26 H BUN Glucose Troponin I 0.071 H* 0.057 H* 05/27/21 06:44 WBC Neutrophils # ABG pH ABG pO2 ABG Total CO2 BUN 20 H Glucose 143 H Troponin I - Diagnostic Findings Chest x-ray: image reviewed CT scan - chest: image reviewed Assessment and Plan Assessment: Shortness of breath, progressive, secondary to bilateral pulmonary emboli. Severe pulmonary hypertension on echocardiogram with tricuspid regurgitation. History of hypertension. No evidence of DVT on venous Doppler studies. Plan: Plan dated 05/27/2021. The patient will be taken to the labor contract analyst, and we will undergo catheter directed TPA and ultrasonic dissolution of the blood clots. This pulmonary embolism is unprovoked, and the patient should be treated for at least 6 months. In addition, a follow-up computed tomography scan should be done 8-12 weeks after the initial computed tomography scan. Dopplers of lower extremities were ne gative. We will continue to follow make recommendations were appropriate. We did speak to cardiology about this patient. Prognosis is guarded. Time with Patient: Greater than 30
[2021-05-27] MEDS ORDERED: fentaNYL (PF) 50 MCG/ML 2 ML AMP ONE (16:34)
[2021-05-27] MEDS ORDERED: fentaNYL (PF) 50 MCG/ML 2 ML AMP IV ONE (16:53)
--- NOTE | 2021-05-27 17:16 | P.PCN ---
Date of Procedure: 05/27/21 Operative Findings: PLACEMENT OF CATHETER IN THE PULMONARY ARTERY Performing physician Osvaldo Clinton MD Procedure performed #1 placement off EkoSonic catheter in the right and left pulmonary arteries #2 pulmonary artery angiogram #3 ultrasound-guided access of the right common femoral vein Indication Submassive PE in this 71-year-old female patient. Complication None Level of sedation Moderate with a sedation length of 60 minutes Procedure description After obtaining an informed consent the patient was brought to the cardiac labor gang supervisor. The right common femoral vein was cannulated 2 using micro-puncture technique under ultrasound guidance, the micro-puncture wire passed easily then I placed 26-[place] sheath at the right common femoral vein. Subsequently and under fluoroscopy guidance a [place] catheter was advanced to the initially the left and then right pulmonary veins. Subsequently I placed a 018 wire inside the [place] and then the [place] was pulled out. Subsequently I advanced the catheter over the wire initially to the left and then right pulmonary veins. Subsequently the treatment catheter was advanced inside the initial catheter. Then both catheter where locked in. Please note that initially I performed a pulmonary angiogram. The procedure was completed without any complication Postprocedure management Continue monitoring the patient in the intensive care unit Follow-up with the patient Pulling the catheters tomorrow morning
[2021-05-27] MEDS ORDERED: IOPAMIDOL-370 100ML BTL INJ ONE (18:02)
[2021-05-27 18:11] LABS: Glucose,Whole Blood 79 mg/dL (75-99)
[2021-05-27] MEDS: traZODone HCL 100 MG TAB PO SCH (21:51)
[2021-05-27] MEDS: HYDROmorphone 0.5 MG/0.5 ML SYRINGE IVP PRN (23:35)
[2021-05-28] MEDS: HYDROmorphone 0.5 MG/0.5 ML SYRINGE IVP PRN ×3 (04:50→14:49)
[2021-05-28] MEDS: PANTOPRAZOLE 40 MG TABLET PO SCH (07:07)
--- NOTE | 2021-05-28 07:09 | P.PN ---
Subjective Progress Note Date: 05/28/21 Principal diagnosis: submassive pulmonary embolism The patient is a pleasant 71-year-old female patient was admitted to the hospital with shortness of breath and she was diagnosed with bilateral PE. The echo showed dilated right ventricle with RV/LV ratio almost 1 with evidence of severe pulmonary hypertension. With that the patient was diagnosed with submassive PE. She underwent yesterday placement of EkoSonic catheter in the pulmonary arteries from right groin approach. The patient was seen this morning she stated "I feel great". The shortness of breath has improved significantly. She has no chest pain or chest discomfort. Hemodynamically she continues to be stable. She does have right groin hematoma which has reduced manually and currently she does have a FemoStop on. I am going to repeat her echocardiogram to assess for improvement in the RVSP as well as RV size. Beside that we are going to DC the pulmonary artery catheter in the next few hours. Meanwhile we'll continue monitor her blood work including CBC and BNP and fibrinogen as well. Follow-up with the patient. Beside that once we take the pulmonary catheter out the patient would be started on oral anticoagulation and we will stop the IV heparin later on as well. Objective - Vital Signs Vital signs: Vital Signs Temp 97.9 F 05/28/21 04:00 Pulse 75 05/28/21 05:00 Resp 11 L 05/28/21 05:00 BP 106/58 05/28/21 05:00 Pulse Ox 95 05/28/21 05:00 Intake & Output 05/27/21 05/28/21 05/28/21 18:59 06:59 18:59 Intake Total 340 930.0 Output Total 1100 Balance 340 -170.0 Intake: IV 100 930.0 Alteplase 10 mg In Sodium 90 Chloride 0.9% 100 ml @ 1 MG/HR 10 mls/hr IV .Q10H [facility] Rx#:[id number] Alteplase 10 mg In Sodium 90 Chloride 0.9% 100 ml @ 1 MG/HR 10 mls/hr IV .Q10H [facility] Rx#:[id number] Heparin Sod,Pork in 0.45% 25.0 NaCl 25,000 unit In 0.45 % NaCl 1 250ml.bag @ 2.5 mls/hr IV .Q24H [facility] Rx#: [id number] Heparin Sod,Pork in 0.45% 25.0 NaCl 25,000 unit In 0.45 % NaCl 1 250ml.bag @ 2.5 mls/hr IV .Q24H [facility] Rx#: [id number] Sodium Chloride 0.9% 1, 350 000 ml @ 35 mls/hr IV . Q24H [facility] Rx#:[id number] Sodium Chloride 0.9% 1, 350 000 ml @ 35 mls/hr IV . Q24H [facility] Rx#:[id number] Oral 240 Output: Urine 1100 Other: # Voids 1 - Constitutional General appearance: Present: no acute distress - Respiratory Respiratory: bilateral: CTA - Cardiovascular Rhythm: regular Heart sounds: normal: S1, S2 - Labs CBC & Chem 7: 05/27/21 06:44 05/27/21 06:44 Labs: Abnormal Lab Results - Last 24 Hours (Table) 05/27/21 Range/Units 06:44 BUN 20 H (7-17) mg/dL Glucose 143 H (74-99) mg/dL Assessment and Plan Assessment: Assessment #1 submassive PE #2 shortness of breath secondary to the above #3 pulmonary hypertension secondary to the above #4 multiple comorbid conditions Plan #1 the patient is on IV heparin at this point #2 consider DC heparin and starting the patient on oral anticoagulation later on today #3 she underwent placement of EkoSonic catheter in the pulmonary artery yesterday #4 follow-up with the patient
[2021-05-28 07:20] LABS: HCT 39.5 % (34.0-46.0); HGB 13.2 gm/dL (11.4-16.0); MCH 30.5 pg (25.0-35.0); MCHC 33.5 g/dL (31.0-37.0); Platelet Count 186 k/uL (150-450); RBC 4.33 m/uL (3.80-5.40); RDW 14.9 % (11.5-15.5); WBC 8.4 k/uL (3.8-10.6)
[2021-05-28 07:33] LABS: ALT 24 U/L (4-34); AST 25 U/L (14-36); African American GFR (CKD) >90 (>60 ml/min/1.73 sqM); Albumin 3.5 g/dL (3.5-5.0); Alkaline Phosphatase 70 U/L (38-126); Anion Gap 4 mmol/L; Blood Urea Nitrogen 11 mg/dL (7-17); Calcium 8.6 mg/dL (8.4-10.2); Carbon Dioxide 25 mmol/L (22-30); Chloride 108 mmol/L (98-107); Glucose 132 mg/dL (74-99); Non-African American GFR(CKD) 89 (>60 ml/min/1.73 sqM); Sodium 137 mmol/L (137-145); Total Bilirubin 1.4 mg/dL (0.2-1.3); Total Protein 6.3 g/dL (6.3-8.2)
[2021-05-28] MEDS: OXYBUTYNIN 10 MG TAB.ER.24 PO SCH (10:00)
[2021-05-28] MEDS: MAGNESIUM OXIDE 400 MG TAB PO SCH (10:00)
[2021-05-28] MEDS: PROPRANOLOL 20 MG TAB PO SCH (10:00)
[2021-05-28] MEDS: CHOLECALCIFEROL 25 MCG (1000 IU) TABLET PO SCH (10:00)
[2021-05-28] MEDS: VENLAFAXINE HCL ER 150 MG CAP PO SCH (10:00)
[2021-05-28] MEDS: buPROPion XL 150 MG TAB.ER.24H PO SCH (10:01)
--- NOTE | 2021-05-28 11:14 | P.PN ---
Subjective Progress Note Date: 05/28/21 Principal diagnosis: PE patient is alert and oriented 4, no acute distress, denying chest pain shortness breath nausea vomiting dumping dizziness lightheadedness or blurry vision. On further questioning patient denied any history of blood disorder any history of blood clotting and her family and stated that she's been healthy otherwise. On general screening patient is denying any constitutional symptoms or signs or symptoms of cancer. Patient according to her story is up-to-date with her appropriate ages screening including mammogram and colonoscopy which has been done by her primary care physician and everything is reassuring. Patient denied any history of hormonal therapy, previous long trip but admitted having sedentary lifestyle since dependent To do and said that she spends her day in chair and bed most of the time area. Objective - Vital Signs Vital signs: Vital Signs Temp 97.7 F 05/28/21 08:00 Pulse 77 05/28/21 10:00 Resp 14 05/28/21 10:00 BP 136/66 05/28/21 10:00 Pulse Ox 97 05/28/21 10:00 Intake & Output 05/27/21 05/28/21 05/28/21 18:59 06:59 18:59 Intake Total 340 1080.0 225.0 Output Total 1250 215 Balance 340 -170.0 10.0 Intake: IV 100 1080.0 225.0 Alteplase 10 mg In Sodium 90 0 Chloride 0.9% 100 ml @ 1 MG/HR 10 mls/hr IV .Q10H [facility] Rx#:[id number] Alteplase 10 mg In Sodium 90 0 Chloride 0.9% 100 ml @ 1 MG/HR 10 mls/hr IV .Q10H [facility] Rx#:[id number] Heparin Sod,Pork in 0.45% 30.0 7.5 NaCl 25,000 unit In 0.45 % NaCl 1 250ml.bag @ 2.5 mls/hr IV .Q24H [facility] Rx#: [id number] Heparin Sod,Pork in 0.45% 30.0 7.5 NaCl 25,000 unit In 0.45 % NaCl 1 250ml.bag @ 2.5 mls/hr IV .Q24H [facility] Rx#: [id number] Sodium Chloride 0.9% 1, 420 105 000 ml @ 35 mls/hr IV . Q24H [facility] Rx#:[id number] Sodium Chloride 0.9% 1, 420 105 000 ml @ 35 mls/hr IV . Q24H [facility] Rx#:[id number] Oral 240 Output: Urine 1250 215 Other: # Voids 1 - Exam Gen.: in stated age, no acute distress Heart: Normal S1-S2 Lungs: Clear to auscultation bilaterally Abdomen: Soft, no tenderness, positive bowel sounds in all 4 quadrant no guarding or rebound Skin: No new rash Psych: Alert and oriented 3 Neuro: No focal deficit Left lower extremity mild erythema without significant swelling compared to the right lower extremity - Labs CBC & Chem 7: 05/28/21 06:50 05/28/21 06:50 Labs: Abnormal Lab Results - Last 24 Hours (Table) 05/28/21 Range/Units 06:50 Chloride 108 H (98-107) mmol/L Glucose 132 H (74-99) mg/dL Total Bilirubin 1.4 H (0.2-1.3) mg/dL Assessment and Plan Assessment: 1. Acute respiratory failure with hypoxia on nasal cannula related to bilateral pulmonary embolism with unclear etiology at this point. 2. Tricuspid regurgitation with pulmonary hypertension on 2-D echo likely related to above. 3. Morbid obesity with underlying obstructive sleep apnea. 4. Up-to-date on her appropriate ages screening including colonoscopy and mammogram. 5. Negative for malignancy screening and negative for constitutional symptoms. 6. Left lower extremity erythema with mild swelling and I would like to rule out DVT. I had long discussion with the patient that after the procedure and removal of the sheath she will be converted to a liquids loading dose 10 mg twice daily for 7 days followed by 5 mg twice daily at least for 6 month and she needs extensive workup on outpatient basis including appropriate age screening by her primary care physician and I would like to consult with hematology oncology during this hospital stay to establish care and have patient's follow-up with him outpatient for determination about the length of treatment as if this deemed to be and provoked pulmonary embolism patient may benefit from lifetime treatment given the fact that she had bilateral pulmonary embolism along with 2-D echo changes showing regurgitation and pulmonary hypertension. I would like to consult with hematology oncology during this hospital stay. Consider transferring out of the intensive care unit once she is completed with 48 hours of heparin drip and started on a liquids. We'll remove Mendez catheter. Monitor hemodynamic closely. Continue with tight glycemic control and monitor hemodynamic closely. Prognosis remained guarded at this point
--- NOTE | 2021-05-28 12:01 | P.PN ---
Subjective Progress Note Date: 05/28/21 Principal diagnosis: Pulmonary embolism. Pulmonary consult dated 05/27/2021. 71-year-old female, seen in consultation, room 382. She presented to the emergency department with complaints of shortness of breath. She apparently had 10 days of progressive and worsening shortness of breath. She denied any chest pain, but did describe a catch in the center of her chest. She does have a history of high blood pressure. She was going to physical therapy for generalized weakness and imbalance, and noted shortness of breath at that time. She was told initially to go to the emergency room, but she refused. She apparently had a chest x-ray that was done and was told it was abnormal. She has been fully vaccinated against coronavirus infection. In the emergency department, she was evaluated for pulmonary embolism, and was found have bilateral PE. Dopplers of the lower extremities were negative. The patient is wearing O2. She is on 2 L with saturations of 93%. Because of her echocardiogram, the infrastructure developer was consulted, and is planning to take the patient to laboratory for catheter directed TPA and ultrasonic dissolution of the clot (EKOS). The patient is a bit nervous because most of her family is out of the area. The patient is a lifelong nonsmoker. She does apparently use marijuana occasionally. She does have a history of hypertension. She also is a bit hard of hearing. Progress note dated 05/28/2021. 71-year-old female seen in the intensive care unit, room 261. She is postop day #1, status/post catheter directed TPA and ultrasonic dissolution of her pulmonary embolism. The patient was on IV heparin. That has been turned off. The patient is now on Eliquis. She's taking 10 mg twice a day. The patient is on 2 L nasal cannula. She's getting saline at 50 mL an hour. She's doing relatively well. She is resting comfortably in the intensive care unit. Dopplers of the lower extremities were negative. She had bilateral pulmonary emboli, and severe pulmonary hypertension. White count 8.4, hemoglobin 13.2, and platelet count 186,000. Sodium and potassium are normal. Chlorides 108, CO2 25, anion gap 4, BUN 11, and creatinine 0.63. The patient had developed a small right femoral hematoma. Objective - Vital Signs Vital signs: Vital Signs Temp 97.7 F 05/28/21 08:00 Pulse 77 05/28/21 11:00 Resp 20 05/28/21 11:00 BP 121/52 05/28/21 11:00 Pulse Ox 96 05/28/21 11:00 Intake & Output 05/27/21 05/28/21 05/28/21 18:59 06:59 18:59 Intake Total 340 1080.0 225.0 Output Total 1250 215 Balance 340 -170.0 10.0 Intake: IV 100 1080.0 225.0 Alteplase 10 mg In Sodium 90 0 Chloride 0.9% 100 ml @ 1 MG/HR 10 mls/hr IV .Q10H [facility] Rx#:[id number] Alteplase 10 mg In Sodium 90 0 Chloride 0.9% 100 ml @ 1 MG/HR 10 mls/hr IV .Q10H [facility] Rx#:[id number] Heparin Sod,Pork in 0.45% 30.0 7.5 NaCl 25,000 unit In 0.45 % NaCl 1 250ml.bag @ 2.5 mls/hr IV .Q24H [facility] Rx#: [id number] Heparin Sod,Pork in 0.45% 30.0 7.5 NaCl 25,000 unit In 0.45 % NaCl 1 250ml.bag @ 2.5 mls/hr IV .Q24H [facility] Rx#: [id number] Sodium Chloride 0.9% 1, 420 105 000 ml @ 35 mls/hr IV . Q24H [facility] Rx#:[id number] Sodium Chloride 0.9% 1, 420 105 000 ml @ 35 mls/hr IV . Q24H [facility] Rx#:[id number] Oral 240 Output: Urine 1250 215 Other: # Voids 1 - Exam No acute distress, oriented 3. No respiratory distress or use of accessory muscles. Currently on 2 L nasal cannula. HEENT examination is grossly unremarkable. Neck supple. Full range of motion. No adenopathy thyromegaly or neck vein distention. Cardiovascular examination reveals regular rhythm rate. S1-S2 normal. No S3 or S4. No discernible murmur noted. Heart rate 78 bpm. Lungs reveal clear breath sounds. Breath sounds are equal bilaterally. No adventitious lung sounds including wheezes rhonchi or crackles. Abdomen soft bowel sounds are heard. No masses or tenderness. Extremities are intact. No cyanosis clubbing or edema. Skin is without rash or lesion. Neurologic examination is brief but nonfocal. - Labs CBC & Chem 7: 05/28/21 06:50 05/28/21 06:50 Labs: Abnormal Lab Results - Last 24 Hours (Table) 05/28/21 Range/Units 06:50 Chloride 108 H (98-107) mmol/L Glucose 132 H (74-99) mg/dL Total Bilirubin 1.4 H (0.2-1.3) mg/dL Assessment and Plan Assessment: Shortness of breath, progressive, secondary to bilateral pulmonary emboli, status post EKOS on 05/27/2021. Severe pulmonary hypertension on echocardiogram with tricuspid regurgitation. History of hypertension. No evidence of DVT on venous Doppler studies. Plan: Plan dated 05/27/2021. The patient will be taken to the solder making laborer, and we will undergo catheter directed TPA and ultrasonic dissolution of the blood clots. This pulmonary embolism is unprovoked, and the patient should be treated for at least 6 months. In addition, a follow-up computed tomography scan should be done 8-12 weeks after the initial computed tomography scan. Dopplers of lower extremities were negative. We will continue to follow make recommendations were appropriate. We did speak to cardiology about this patient. Prognosis is guarded. Plan dated 05/28/2021. The patient underwent catheter directed TPA, and ultrasonic dissolution of the blood clots. The patient was on IV heparin which is recently been turned off. The patient has not been switched to Eliquis, 10 mg twice a day. The patient should be treated for at least 6 months. This is an unprovoked pulmonary embolism. A repeat computed tomography scan should be done in 8-12 weeks after the initial computed tomography scan. Dopplers of the lower extremities were negative. We will continue to follow make recommendations where appropriate. Prognosis is certainly guarded. Time with Patient: Greater than 30
[2021-05-28] MEDS: APIXABAN 5 MG TAB PO SCH ×2 (12:19→19:50)
--- NOTE | 2021-05-28 13:57 | ECHOF ---
Referral Reason:RV strain MEASUREMENTS -------- HEIGHT: 160.0 cm WEIGHT: 99.8 kg BP: 117/57 TAPSE: 24.50 mm FINDINGS -------- Sinus rhythm. Overall left ventricular systolic function is normal with, an EF between 55 - 60 %. The right ventricular systolic function is normal. CONCLUSIONS -------- 1. Overall left ventricular systolic function is normal with, an EF between 55 - 60 %. 2. The right ventricular systolic function is normal. ORCHESTRA TEACHER: Amanda Anne [facility]
[2021-05-28] MEDS: traZODone HCL 100 MG TAB PO SCH (19:50)
[2021-05-29] MEDS: PANTOPRAZOLE 40 MG TABLET PO SCH (06:59)
[2021-05-29 07:27] LABS: INR 0.9 (<1.2); Partial Thromboplastin Time 23.7 sec (22.0-30.0); Prothrombin Time 10.4 sec (9.0-12.0)
[2021-05-29] MEDS: CHOLECALCIFEROL 25 MCG (1000 IU) TABLET PO SCH (08:21)
[2021-05-29] MEDS: MAGNESIUM OXIDE 400 MG TAB PO SCH (08:22)
[2021-05-29] MEDS: APIXABAN 5 MG TAB PO SCH ×2 (08:22→20:16)
[2021-05-29] MEDS: buPROPion XL 150 MG TAB.ER.24H PO SCH (08:23)
[2021-05-29] MEDS: OXYBUTYNIN 10 MG TAB.ER.24 PO SCH (08:23)
[2021-05-29] MEDS: VENLAFAXINE HCL ER 150 MG CAP PO SCH (08:23)
[2021-05-29] MEDS: PROPRANOLOL 20 MG TAB PO SCH (08:23)
--- NOTE | 2021-05-29 08:45 | P.PN ---
Subjective Progress Note Date: 05/29/21 Hospital course: Patient is a very pleasant 71 year-old female who was admitted to the hospital with shortness of breath and was diagnosed with bilateral PEs. Echocardiogram revealed a dilated right ventricle with RV/LV ratio almost 1 with evidence of severe pulmonary hypertension, resulting in diagnosis of submassive pulmonary emboli. Patient underwent placement of EkoSonic catheter in the pulmonary arteries from right groin approach on 05/27/21. Patient currently in cardiac st epdown unit and appears to be doing well. She is on oral anticoagulation with Eliquis 10 mg twice a day. Patient denies having any other complaints at this time, hemodynamically patient continues to be stable. She did have noted bruising and tenderness in right groin from access site, orders placed for ultrasound right groin to rule out pseudoaneurysm. Physical exam: Vital signs reviewed and stable. General: Nontoxic, no distress and appears stated age. Derm: Skin warm and dry, normal coloration for ethnicity. Right groin bruising and tenderness. Head: Atraumatic, normocephalic and symmetric. Eyes: EOMs intact, no lid lag, and anicteric sclera Mouth: no lip lesions, mucus membranes moist Cardiovascular: regular rate and rhythm with normal S1S2, no murmur, positive posterior tibial pulses bilaterally, and cap refill < 2 seconds. Lungs: Respirations even, regular, and unlabored on room air. Lungs CTA bilaterally, no rhonchi, no rales, no wheezing, and no accessory muscle usage. Abdominal: soft, nontender to palpation, no guarding, no appreciable organomegaly Ext: ROM intact. No gross muscle atrophy, no edema, no contractures Neuro: Speech clear, face symmetrical and CN II-XII grossly intact with no noted focal neuro deficits Psych: Alert and oriented to person, place, time, and situation. Appropriate and pleasant affect. Assessment and Plan of Care: Submassive PE Shortness of breath secondary to the above Pulmonary hypertension secondary to the above Multiple comorbid conditions Status post EkoSonic catheter in the pulmonary arteries from right groin approa on 05/27/21. Continue oral anticoagulation with Eliquis Ultrasound right groin Repeat echocardiogram revealed normal EF between 55 and 60% with normal right ventricular systolic function We will continue to follow patient, further recommendations pending clinical course. Thank you for allowing us to participate in the care of this pleasant patient. Do not hesitate to contact us with questions. Nurse practitioner note has been reviewed by physician. Signing provider agrees with the documented findings, assessment, and plan of care Objective - Vital Signs Vital signs: Vital Signs Temp 98.3 F 05/29/21 08:26 Pulse 102 H 05/29/21 08:26 Resp 18 05/29/21 08:26 BP 151/85 05/29/21 08:26 Pulse Ox 90 L 05/29/21 08:26 Intake & Output 05/28/21 05/29/21 05/29/21 18:59 06:59 18:59 Intake Total 225.0 Output Total 415 150 Balance -190.0 -150 Intake: IV 225.0 Alteplase 10 mg In Sodium 0 Chloride 0.9% 100 ml @ 1 MG/HR 10 mls/hr IV .Q10H [facility] Rx#:[id number] Alteplase 10 mg In Sodium 0 Chloride 0.9% 100 ml @ 1 MG/HR 10 mls/hr IV .Q10H [facility] Rx#:[id number] Heparin Sod,Pork in 0.45% 7.5 NaCl 25,000 unit In 0.45 % NaCl 1 250ml.bag @ 2.5 mls/hr IV .Q24H [facility] Rx#: [id number] Heparin Sod,Pork in 0.45% 7.5 NaCl 25,000 unit In 0.45 % NaCl 1 250ml.bag @ 2.5 mls/hr IV .Q24H [facility] Rx#: [id number] Sodium Chloride 0.9% 1, 105 000 ml @ 35 mls/hr IV . Q24H [facility] Rx#:[id number] Sodium Chloride 0.9% 1, 105 000 ml @ 35 mls/hr IV . Q24H [facility] Rx#:[id number] Output: Urine 415 150 Other: Voiding Method Indwelling Catheter Toilet Toilet - Labs CBC & Chem 7: 05/28/21 06:50 05/28/21 06:50
--- NOTE | 2021-05-29 10:13 | US ---
EXAMINATION TYPE: US lower ext pseudo artery RT DATE OF EXAM: 05/29/2021 COMPARISON: US LEV CLINICAL HISTORY: rule out pseudoaneurysm right groin. Inpatient with ecchymosis and skin fullness no rodney post right groin catheterization performed for PE IR recanalization. EXAM PERFORMED: Grayscale and color Doppler duplex imaging performed of the groin, post cardiac lela ter to assess for pseudoaneurysm. SIDE PERFORMED: right Color and Pulse Waveform Doppler was performed to assess for the presence of pseudoaneurysm; Is there ultrasound evidence of a pseudoaneurysm: no Is there evidence of AV shunting: no Is there a fluid collection present: yes, two complex fluid areas are noted anterior to vessels with larger at superior and medial groin = 9.0 x 4.0 x 1.6cm and smaller complex fluid area noted more an teriorly and medially to vessels = 2.8 x 2.2 x 1.4cm. IMPRESSION: 2 fluid collections in the right groin but no evidence of pseudoaneurysm or fistula
--- NOTE | 2021-05-29 10:35 | P.PN ---
Subjective Progress Note Date: 05/29/21 Principal diagnosis: PE patient continued to be hemodynamically stable overnight and oxygen has been removed and patient has been satting above 94% on room air since yesterday am bulating in the room without restriction tolerating diet and feels back to normal according to her stay. Patient was evaluated by cardiology this morning who cleared her from the prospective to be discharged and patient had multiple concerns and questions that were all addressed at the bedside Objective - Vital Signs Vital signs: Vital Signs Temp 98.3 F 05/29/21 08:26 Pulse 102 H 05/29/21 08:26 Resp 18 05/29/21 08:26 BP 151/85 05/29/21 08:26 Pulse Ox 90 L 05/29/21 08:26 Intake & Output 05/28/21 05/29/21 05/29/21 18:59 06:59 18:59 Intake Total 225.0 240 Output Total 415 150 Balance -190.0 -150 240 Intake: IV 225.0 Alteplase 10 mg In Sodium 0 Chloride 0.9% 100 ml @ 1 MG/HR 10 mls/hr IV .Q10H [facility] Rx#:[id number] Alteplase 10 mg In Sodium 0 Chloride 0.9% 100 ml @ 1 MG/HR 10 mls/hr IV .Q10H [facility] Rx#:[id number] Heparin Sod,Pork in 0.45% 7.5 NaCl 25,000 unit In 0.45 % NaCl 1 250ml.bag @ 2.5 mls/hr IV .Q24H [facility] Rx#: [id number] Heparin Sod,Pork in 0.45% 7.5 NaCl 25,000 unit In 0.45 % NaCl 1 250ml.bag @ 2.5 mls/hr IV .Q24H [facility] Rx#: [id number] Sodium Chloride 0.9% 1, 105 000 ml @ 35 mls/hr IV . Q24H [facility] Rx#:[id number] Sodium Chloride 0.9% 1, 105 000 ml @ 35 mls/hr IV . Q24H [facility] Rx#:[id number] Oral 240 Output: Urine 415 150 Other: Voiding Method Indwelling Catheter Toilet Toilet - Exam Gen.: in stated age, no acute distress Heart: Normal S1-S2 Lungs: Clear to auscultation bilaterally Abdomen: Soft, no tenderness, positive bowel sounds in all 4 quadrant no guarding or rebound Skin: No new rash Psych: Alert and oriented 3 Neuro: No focal deficit Left lower extremity mild erythema without significant swelling compared to the right lower extremity - Labs CBC & Chem 7: 05/28/21 06:50 05/28/21 06:50 Assessment and Plan Assessment: 1. Acute respiratory failure with hypoxia on nasal cannula related to bilatera l pulmonary embolism with unclear etiology at this point. 2. Tricuspid regurgitation with pulmonary hypertension on 2-D echo likely related to above. 3. Morbid obesity with underlying obstructive sleep apnea. 4. Up-to-date on her appropriate ages screening including colonoscopy and mammogram. 5. Negative for malignancy screening and negative for constitutional symptoms. 6. Left lower extremity erythema with mild swelling and I would like to rule out DVT. 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 Patient also asked about the length of ac atment and I explained to her that currently without founding evidence for her pulmonary embolism with the given negative venous Doppler ultrasound of the lower extremity this is considered as unprovoked pulmonary embolism and need to be on prolonged period of treatment until seen and evaluated on outpatient basis for determination of reason for her clots. Patient will need close follow-up with primary care physician for appropriate ages screening. Still awaiting on hematology oncology consult in house and close follow-up outpatient. I would like to consult with social worker school and catalytic case operator and preparation for discharge in the morning if patient's continued to be hemodynamically stable and arrangement for and requests prior to discharge and to be filled in the hospital pharmacy. Plan discussed with nursing staff
--- NOTE | 2021-05-29 14:17 | P.PN ---
Subjective Progress Note Date: 05/29/21 Principal diagnosis: Pulmonary emboli 71-year-old female, seen in consultation, room 382. She presented to the emergency department with complaints of shortness of breath. She apparently had 10 days of progressive and worsening shortness of breath. She denied any chest pain, but did describe a catch in the center of her chest. She does have a history of high blood pressure. She was going to physical therapy for generalized weakness and imbalance, and noted shortness of breath at that time. She was told initially to go to the emergency room, but she refused. She appa rently had a chest x-ray that was done and was told it was abnormal. She has been fully vaccinated against coronavirus infection. In the emergency department, she was evaluated for pulmonary embolism, and was found have bilateral PE. Dopplers of the lower extremities were negative. The patient is wearing O2. She is on 2 L with saturations of 93%. Because of her echocardiogram, the [employer] insurance was consulted, and is planning to take the patient to laboratory for catheter directed TPA and ultrasonic dissolution of the clot (EKOS). The patient is a bit nervous because most of her family is out of the area. The patient is a lifelong nonsmoker. She does apparently use marijuana occasionally. She does have a history of hypertension. She also is a bit hard of hearing. Progress note dated 05/28/2021. 71-year-old female seen in the intensive care unit, room 261. She is postop day #1, status/post catheter directed TPA and ultrasonic dissolution of her pulmonary embolism. The patient was on IV heparin. That has been turned off. The patient is now on Eliquis. She's taking 10 mg twice a day. The patient is on 2 L nasal cannula. She's getting saline at 50 mL an hour. She's doing relatively well. She is resting comfortably in the intensive care unit. Dopplers of the lower extremities were negative. She had bilateral pulmonary emboli, and severe pulmonary hypertension. White count 8.4, hemoglobin 13.2, and platelet count 186,000. Sodium and potassium are normal. Chlorides 108, CO2 25, anion gap 4, BUN 11, and creatinine 0.63. The patient had developed a small right femoral hematoma. The patient is seen today 05/29/2021 in follow-up on the selective care unit. She is currently resting comfortably in bed. Awake and alert in no acute distress. Maintaining good O2 saturations in the 90s on room air oxygen. She's been afebrile. Hemodynamically stable. This is day #2 of a catheter directed TPA dissolution of her pulmonary embolism. She's been transitioned to Eliquis. No shortness of breath, cough or congestion. no hemoptysis. Objective - Vital Signs Vital signs: Vital Signs Temp 98.2 F 05/29/21 12:00 Pulse 75 05/29/21 12:00 Resp 16 05/29/21 12:00 BP 137/83 05/29/21 12:00 Pulse Ox 94 L 05/29/21 12:00 Intake & Output 05/28/21 05/29/21 05/29/21 18:59 06:59 18:59 Intake Total 225.0 240 Output Total 415 150 Balance -190.0 -150 240 Intake: IV 225.0 Alteplase 10 mg In Sodium 0 Chloride 0.9% 100 ml @ 1 MG/HR 10 mls/hr IV .Q10H [facility] Rx#:[id number] Alteplase 10 mg In Sodium 0 Chloride 0.9% 100 ml @ 1 MG/HR 10 mls/hr IV .Q10H [facility] Rx#:[id number] Heparin Sod,Pork in 0.45% 7.5 NaCl 25,000 unit In 0.45 % NaCl 1 250ml.bag @ 2.5 mls/hr IV .Q24H [facility] Rx#: [id number] Heparin Sod,Pork in 0.45% 7.5 NaCl 25,000 unit In 0.45 % NaCl 1 250ml.bag @ 2.5 mls/hr IV .Q24H [facility] Rx#: [id number] Sodium Chloride 0.9% 1, 105 000 ml @ 35 mls/hr IV . Q24H [facility] Rx#:[id number] Sodium Chloride 0.9% 1, 105 000 ml @ 35 mls/hr IV . Q24H [facility] Rx#:[id number] Oral 240 Output: Urine 415 150 Other: Voiding Method Indwelling Catheter Toilet Toilet - Exam GENERAL EXAM: Alert, active, very pleasant 71-year-old female patient, on room air, comfortable in no apparent distress. HEAD: Normocephalic. EYES: Normal reaction of pupils, equal size. NOSE: Clear with pink turbinates. THROAT: No erythema or exudates. NECK: No masses, no JVD. CHEST: No chest wall deformity. LUNGS: Equal air entry with no crackles, wheeze, rhonchi or dullness. CVS: S1 and S2 normal with no audible murmur, regular rhythm. ABDOMEN: No hepatosplenomegaly, normal bowel sounds, no guarding or rigidity. SPINE: No scoliosis or deformity SKIN: No rashes CENTRAL NERVOUS SYSTEM: No focal deficits, tone is normal in all 4 extremities. EXTREMITIES: There is no peripheral edema. No clubbing, no cyanosis. Peripheral pulses are intact. - Labs CBC & Chem 7: 05/28/21 06:50 05/28/21 06:50 Assessment and Plan Assessment: 1 Dyspnea secondary to bilateral pulmonary emboli, status post EKOS on 05/27/2021, transitioned to Eliquis 2 Severe pulmonary hypertension echocardiogram with tricuspid regurgitation 3 History of hypertension Plan: The patient was seen and evaluated Stable and on room air Transitioned to Eliquis Home once cleared by medicine Follow-up in the office in 1-2 weeks' I, the cosigning physician, performed a history & physical examination of the patient. Lungs sounds are clear. Maintaining good O2 saturations in the 90s on room air. I discussed the assessment and plan of care with my nurse practitioner, Nimo Cochran. I attest to the above note as dictated by her.
--- NOTE | 2021-05-29 14:25 | P.CONS ---
History of Present Illness - Reason for Consult Consult date: 05/29/21 Pulmonary Emboli Requesting physician: Doug Cowan - Chief Complaint Shortness of Breath - History of Present Illness Mrs. Whitlock is a 71 year old female who presented to the hospital shortly (within approx 10 days prior) after receiving pain injections. She stated she had been experiencing progressive SOB over the past week and therefore came in for further evaluatioh. On evaluation a CTA revealed multiple bilateral pulmonary emboli and anticoagulation was initiated, She is status/post catheter directed TPA and dissolution of her pulmonary embolis and has now been converted to eliquis. We have been asked to futher evaluate related to the PEs. A venous doppler was negative for DVTs. She does have provoking risk factors suc as chronic disease, obesity, and decreased motility. She also was found to have hematoma on thigh although her hemoglobin has remained stable as well as platelets Review of Systems All systems: negative Past Medical History Past Medical History: Hypertension Additional Past Medical History / Comment(s): [place], liver problems History of Any Multi-Drug Resistant Organisms: None Reported Past Surgical History: Bladder Surgery, Joint Replacement Additional Past Surgical History / Comment(s): lt knee Past Anesthesia/Blood Transfusion Reactions: No Reported Reaction Past Psychological History: Depression Smoking Status: Former smoker Past Alcohol Use History: Occasional Additional Past Alcohol Use History / Comment(s): Pt states she somked briefly in college. No smoking since then. Past Drug Use History: Marijuana Additional Drug Use History / Comment(s): Pt states she uses marijuana occasionally. Medications and Allergies Home Medications Medication Instructions Recorded Confirmed Type Aspirin EC [Ecotrin] 325 mg PO DAILY 05/26/21 05/26/21 History Cholecalciferol [Vitamin D3 (25 50 mcg PO DAILY 05/26/21 05/26/21 History Mcg = 1000 Iu)] Fish Oil/Dha/Epa [Fish Oil 1,200 1 cap PO DAILY 05/26/21 05/26/21 History mg Fish Oil] Magnesium 500 mg PO DAILY 05/26/21 05/26/21 History Omeprazole 20 mg PO DAILY 05/26/21 05/26/21 History Oxybutynin ER [Ditropan Xl] 10 mg PO DAILY 05/26/21 05/26/21 History Propranolol HCl 20 mg PO DAILY 05/26/21 05/26/21 History Venlafaxine HCl ER [Effexor Xr] 300 mg PO DAILY 05/26/21 05/26/21 History buPROPion XL [Wellbutrin XL] 150 mg PO DAILY 05/26/21 05/26/21 History traZODone HCL 100 mg PO HS 05/26/21 05/26/21 History Allergies Allergy/AdvReac Type Severity Reaction Status Date / Time azithromycin [From Zithromax] Allergy Anaphylaxis Verified 05/26/21 21:59 latex Allergy Rash/Hives Verified 05/26/21 21:59 Physical Exam Vitals: Vital Signs Temp Pulse Resp BP Pulse Ox 05/28/21 13:00 72 24 131/70 92 L 05/28/21 12:00 98.7 F 74 20 124/81 93 L 05/28/21 11:00 77 20 121/52 96 05/28/21 10:00 77 14 136/66 97 05/28/21 09:34 96 05/28/21 09:00 75 15 126/62 97 05/28/21 08:00 97.7 F 75 16 115/49 97 05/28/21 07:00 76 12 117/57 97 05/28/21 06:00 81 19 105/37 94 L 05/28/21 05:00 75 11 L 106/58 95 05/28/21 04:00 97.9 F 80 23 105/77 94 L 05/28/21 03:00 79 22 112/49 92 L 05/28/21 02:00 83 25 H 143/60 97 05/28/21 01:00 77 26 H 139/70 93 L 05/28/21 00:03 81 24 139/70 92 L 05/28/21 00:00 77 25 H 156/74 94 L 05/27/21 23:00 89 19 116/67 94 L 05/27/21 22:00 89 17 94/72 94 L 05/27/21 21:20 96 05/27/21 21:00 98 29 H 142/83 94 L 05/27/21 20:00 98.5 F 90 20 141/99 96 05/27/21 19:00 88 22 160/78 95 05/27/21 18:02 98.3 F 87 23 170/82 95 Intake and Output 05/27/21 05/28/21 05/28/21 22:59 06:59 14:59 Intake Total 480.0 700.0 225.0 Output Total 600 650 265 Balance -120.0 50.0 -40.0 Intake: IV 480.0 700.0 225.0 Alteplase 10 mg In Sodium 40 50 0 Chloride 0.9% 100 ml @ 1 MG/HR 10 mls/hr IV .Q10H [facility] Rx#:[id number] Alteplase 10 mg In Sodium 40 50 0 Chloride 0.9% 100 ml @ 1 MG/HR 10 mls/hr IV .Q10H [facility] Rx#:[id number] Heparin Sod,Pork in 0.45% 10.0 20.0 7.5 NaCl 25,000 unit In 0.45 % NaCl 1 250ml.bag @ 2.5 mls/hr IV .Q24H [facility] Rx#: [id number] Heparin Sod,Pork in 0.45% 10.0 20.0 7.5 NaCl 25,000 unit In 0.45 % NaCl 1 250ml.bag @ 2.5 mls/hr IV .Q24H [facility] Rx#: [id number] Sodium Chloride 0.9% 1, 140 280 105 000 ml @ 35 mls/hr IV . Q24H [facility] Rx#:[id number] Sodium Chloride 0.9% 1, 140 280 105 000 ml @ 35 mls/hr IV . Q24H [facility] Rx#:[id number] Output: Urine 600 650 265 Other: Voiding Method Indwelling Catheter - Constitutional General appearance: cooperative - EENT Eyes: EOMI ENT: hard of hearing, NA/AT - Neck Neck: normal ROM - Respiratory Respiratory: bilateral: diminished - Cardiovascular Rhythm: irregularly irregular leg Peripheral Edema: absent: None (eccymosis ) - Gastrointestinal General gastrointestinal: soft - Integumentary Integumentary: pale - Musculoskeletal Musculoskeletal: generalized weakness - Psychiatric Psychiatric: A&O x's 3 Results CBC & Chem 7: 05/28/21 06:50 05/28/21 06:50 Labs: Abnormal Lab Results - Last 24 Hours (Table) 05/28/21 Range/Units 06:50 Chloride 108 H (98-107) mmol/L Glucose 132 H (74-99) mg/dL Total Bilirubin 1.4 H (0.2-1.3) mg/dL Chest x-ray: report reviewed CT scan - chest: report reviewed Assessment and Plan (1) Pulmonary embolism Current Visit: Yes Status: Acute Code(s): I26.99 - OTHER PULMONARY EMBOLISM WITHOUT ACUTE COR PULMONALE SNOMED Code(s): 45134613 Plan: Likely provoked with ongoing risk factors and more recent sendentary, depression, weight gain, and lack of movement of bilater PEs consideration for lifelong anticoagulation could be reasonable. We are happy to evaluate other hypercoagulable risks as outpatient in 4-6, will make this appointment for patient to see Dr. Swenson. Discussed in detail with patient Discussed with primary team In the interim care per Pulm, primary and OCU and continue on ELiquis. ok for discharge from oncology
[2021-05-29] MEDS: traZODone HCL 100 MG TAB PO SCH (20:16)
[2021-05-30] MEDS: PANTOPRAZOLE 40 MG TABLET PO SCH (06:09)
--- NOTE | 2021-05-30 07:36 | IR ---
EXAMINATION TYPE: IR transcath embolizat therapy DATE OF EXAM: 05/27/2021 CLINICAL HISTORY: Bilateral pulmonary emboli TECHNIQUE: Fluoroscopy. COMPARISON: CTA chest from 1 day earlier. FINDINGS: Fluoroscopic guidance was provided during transcatheter embolization procedure performed m[facility]. A total of 20.6 minutes of fluoroscopic time was utilized during the procedure and 165 s pot intraoperative images are acquired. IMPRESSION: As Above.
[2021-05-30] MEDS: PROPRANOLOL 20 MG TAB PO SCH (08:01)
[2021-05-30] MEDS: MAGNESIUM OXIDE 400 MG TAB PO SCH (08:01)
[2021-05-30] MEDS: CHOLECALCIFEROL 25 MCG (1000 IU) TABLET PO SCH (08:01)
[2021-05-30] MEDS: VENLAFAXINE HCL ER 150 MG CAP PO SCH (08:01)
[2021-05-30] MEDS: APIXABAN 5 MG TAB PO SCH (08:01)
[2021-05-30] MEDS: OXYBUTYNIN 10 MG TAB.ER.24 PO SCH (08:01)
[2021-05-30] MEDS: buPROPion XL 150 MG TAB.ER.24H PO SCH (08:01)
[2021-05-30 12:10] VITALS: BP 125/77; PULSE 75; RESP 18; TEMP 97.9
--- NOTE | 2021-05-30 12:15 | P.DS ---
Providers Date of admission: 05/27/21 10:40 Expected date of discharge: 05/30/21 Attending physician: Hunter Benedict Consults: 05/26/21 23:23 Consult Physician Routine Consulting Provider: Vladimir Kelly Consult Reason/Comments: Pulmonary embolism Do you want consulting provider notified?: Yes 05/27/21 06:17 Consult Physician Routine Consulting Provider: Osvaldo Clinton Consult Reason/Comments: Elevated Troponin Do you want consulting provider notified?: Yes 05/28/21 10:27 Consult Physician Routine Consulting Provider: Arelis Woodward Consult Reason/Comments: Pulmonary Emboli Do you want consulting provider notified?: Yes 05/29/21 10:16 Consult Physician Stat Consulting Provider: Arelis Woodward Consult Reason/Comments: PE Do you want consulting provider notified?: Yes Primary care physician: Viviana Stoll [facility] Course: HISTORY OF PRESENT ILLNESS This is a 71-year-old female patient of Dr. Stoll with past medical history of hypertension, memory loss, gastroesophageal reflux disease, thyroid nodule, degenerative disc disease or spinal stenosis under the care of Dr. Ribeiro, neurologist in [place], status post steroid injections. Patient states that 1 week ago on Sunday she started having shortness of breath and saw her PCP had her blood pressure checked an x-ray of her chest was done last . She had a follow-up yesterday and was told that the chest x-ray showed a left lower lobe shadow. Patient was then sent in to the hospital for further evaluation. She does have history of driving to [place] after she received the Covid vaccine in February 2021. She denies any history of having Covid 19. Patient was found to be afebrile, heart rate 115, respiratory rate 26, blood pressure 154/87 and pulse ox 96% on room air. WBC 12.1 otherwise CBC was unremarkable. ABGs pH 7.46, pCO2 35, pO2 70, bicarb 25, total CO2 26, O2 saturation 95, base excess 1, FiO2 28. All joints were normal, BUN 22 and creatinine 0.62. Blood sugar 117. Lactic acid 1.1. Calcium 10.2, magnesium 1.9. Liver function tests were normal. Troponins 0.084, 0.071 and 0.057. Chronic virus, influenza A, influenza B all not detected. Chest x-ray reveals no acute process. CTA of the chest was positive for multiple bilateral pulmonary emboli. No evidence of right heart strain. Echocardiogram reveals EF of 60-65% with moderate left and hypertrophy, trace to mild mitral regurgitation, mild tricuspid regurgitation, severe pulmonary hypertension, RVSP 54.76 mmHg. Venous ultrasound bilateral lower extremities negative for DVT. Patient has been seen and followed by cardiology, acute coronary syndrome is been ruled out, elevated troponin secondary to pulmonary embolism. Patient is also been followed by pulmonary medicine. At the time of discharge her pulse ox was 93-96% on room air. Patient was also seen and followed by oncology with recommendations for lifelong anticoagulation and will evaluate for hypercoagulopathy risk as an outpatient and will make an appointment for Dr. Swenson. Patient was started on eliquis 10 mg twice daily for 7 days followed by 5 mg twice daily. Patient denies having any shortness of breath, cough, chest pain. Patient will be discharged home today in stable condition. DISCHARGE DIAGNOSES 1. Acute hypoxic respiratory failure secondary to acute pulmonary embolism. 2. Elevated troponin, possible non-ST elevated myocardial infarction. 3. Hypertension. 4. History of memory loss, stable. 5. Gastroesophageal reflux disease. 6. Degenerative disc disease or spinal stenosis under the care of neurology, stable. 7. Overactive bladder. 8. Recurrent depression, generalized anxiety disorder. 9. COVID-19 testing negative. Patient has been hospitalized during a pandemic. DISCHARGE PLAN Home Greater than 35 minutes was utilized and coordinating patient's discharge. Impression and plan of care have been directed as dictated by the signing physician. Yamileth Del Rio nurse practitioner acting as scribe for signing physician. Patient Condition at Discharge: Stable Plan - Discharge Summary Discharge Rx Participant: Yes New Discharge Prescriptions: New Apixaban [Eliquis] 10 mg PO BID #90 tab Continue Magnesium 500 mg PO DAILY Cholecalciferol [Vitamin D3 (25 Mcg = 1000 Iu)] 50 mcg PO DAILY Propranolol HCl 20 mg PO DAILY Omeprazole 20 mg PO DAILY traZODone HCL 100 mg PO HS Venlafaxine HCl ER [Effexor XR] 300 mg PO DAILY Oxybutynin ER [Ditropan Xl] 10 mg PO DAILY buPROPion XL [Wellbutrin XL] 150 mg PO DAILY Fish Oil/Dha/Epa [Fish Oil 1,200 mg Fish Oil] 1 cap PO DAILY Discontinued Aspirin EC [Ecotrin] 325 mg PO DAILY Discharge Medication List Cholecalciferol [Vitamin D3 (25 Mcg = 1000 Iu)] 50 mcg PO DAILY 05/26/21 [History] Fish Oil/Dha/Epa [Fish Oil 1,200 mg Fish Oil] 1 cap PO DAILY 05/26/21 [History] Magnesium 500 mg PO DAILY 05/26/21 [History] Omeprazole 20 mg PO DAILY 05/26/21 [History] Oxybutynin ER [Ditropan Xl] 10 mg PO DAILY 05/26/21 [History] Propranolol HCl 20 mg PO DAILY 05/26/21 [History] Venlafaxine HCl ER [Effexor XR] 300 mg PO DAILY 05/26/21 [History] buPROPion XL [Wellbutrin XL] 150 mg PO DAILY 05/26/21 [History] traZODone HCL 100 mg PO HS 05/26/21 [History] Apixaban [Eliquis] 10 mg PO BID #90 tab 05/30/21 [Rx] Follow up Appointment(s)/Referral(s): Esha Hinton ANPBC [Nurse Practitioner] - 4 Weeks (office will call you with appointment) Viviana Stoll DO [Primary Care Provider] - 1 Week (office is closed, please call to make follow up) Hieu Swenson MD [STAFF PHYSICIAN] - 6 Weeks (office will call you with appointment) Patient Instructions/Handouts: Pulmonary Embolism (DC) Discharge Disposition: HOME SELF-CARE
--- NOTE | 2021-05-30 13:23 | P.PN ---
Subjective Progress Note Date: 05/30/21 HISTORY OF PRESENT ILLNESS: This is a 71-year-old female with a past medical history significant for nonischemic cardiomyopathy with a previous EF of 20% following an episode of bro nchitis with recovery of her LV function. Patient states her last two echos at her cardiology office have been normal. Patient follows with Dr. Valencia in [place]. We have been asked to see the patient in consultation for abnormal troponins. Patient examined at the bedside. Patient states she has have worsening shortness of breath over the past 10 days. She denies any recent illness. Patient was found to have bilateral pulmonary embolisms. Patient denies any history of DVT or PE. She denies any prolonged immobility or travel. Denies any family history of clotting disorders. Denies history of cancer. Patient denies any history of Covid. Patient states she did receive her vaccine and her booster. She received the booster in February 2021. EKG reveals sinus tachycardia with nonspecific ST-T wave changes Chest xray negative for acute process Chest CT: Multiple bilateral pulmonary emboli. No evidence of right heart strain Laboratory data: The WBC 8.1. Hemoglobin 13.6. Platelet count 201. Sodium 137. Potassium 3.8. BUN 20. Creatinine 0.61. ProBNP 538. Troponin 0.084. 0.071. 0.057. Current home cardiac medications include propanolol 20 mg daily and aspirin 325 mg daily 05/30/2021 Patient examined this morning at the bedside. She is status post EKOS with Dr. Clinton. Ultrasound of lower extremity revealed fluid collection in right groin but no evidence of pseudoaneurysm or fistula. The patient denies shortness of breath. She denies chest pain or pressure. She is anticoagulated with Eliquis. PHYSICAL EXAM: VITAL SIGNS: Reviewed. GENERAL: Well-developed in no acute distress. HEENT: Head is normocephalic. Pupils are equal, round. Sclerae anicteric. Mucous membranes of the mouth are moist. Neck supple. No JVD or thyromegaly LUNGS: Respirations even and unlabored. Lungs essentially clear to auscultation bilaterally. HEART: Regular rate and rhythm. S1 and S2 heard. ABDOMEN: Soft. Nondistended. Nontender. EXTREMITIES: Normal range of motion. No clubbing or cyanosis. Peripheral pulses intact. No lower extremity edema NEUROLOGIC: Awake and alert. Oriented x 3. ASSESSMENT: Shortness of breath Bilateral pulmonary emboli, s/p EKOS Abnormal troponins, secondary to above Pulmonary hypertension History of nonischemic cardiomyopathy with EF of 20%, with subsequent recovery of LV function PLAN: Continue current cardiac medications Patient is stable for discharge home today Follow up outpatient with her primary pneumatic tester, Dr. Valencia Nurse practitioner note has been reviewed by physician. Signing provider agrees with the documented findings, assessment, and plan of care. Objective - Vital Signs Vital signs: Vital Signs Temp 97.9 F 05/30/21 12:00 Pulse 75 05/30/21 12:00 Resp 18 05/30/21 12:00 BP 125/77 05/30/21 12:00 Pulse Ox 93 L 05/30/21 12:00 Intake & Output 05/29/21 05/30/21 05/30/21 18:59 06:59 18:59 Intake Total 720 10 240 Balance 720 10 240 Intake: IV 10 0.9 10 Oral 720 240 Other: Voiding Method Toilet Toilet Toilet # Voids 1 - Labs CBC & Chem 7: 05/28/21 06:50 05/28/21 06:50
--- NOTE | 2021-05-30 14:42 | P.PN ---
Subjective Progress Note Date: 05/30/21 On today's evaluation of 05/30/2020, the patient is doing well. The patient is post catheter directed TPA for pulmonary embolism and the patient is currently on room air oxygen and the patient was started on anticoagulation with Eliquis 10 mg by mouth twice a day. No bleeding complications. She is ambulating. Echocardiogram showed a moderate to severe degree of pulmonary hypertension with a PA pressure 54. The chronicity of this pulmonary hypertension is not known. Present that be function were essentially within normal limits. Renal function stable. Patient is hemodynamically stable. Raises are being made for discharge this patient home today. Objective - Vital Signs Vital signs: Vital Signs Temp 97.9 F 05/30/21 12:00 Pulse 75 05/30/21 12:00 Resp 18 05/30/21 12:00 BP 125/77 05/30/21 12:00 Pulse Ox 93 L 05/30/21 12:00 Intake & Output 05/29/21 05/30/21 05/30/21 18:59 06:59 18:59 Intake Total 720 10 240 Balance 720 10 240 Intake: IV 10 0.9 10 Oral 720 240 Other: Voiding Method Toilet Toilet Toilet # Voids 1 - Exam GENERAL EXAM: Alert, active, very pleasant 71-year-old female patient, on room air, comfortable in no apparent distress. HEAD: Normocephalic. EYES: Normal reaction of pupils, equal size. NOSE: Clear with pink turbinates. THROAT: No erythema or exudates. NECK: No masses, no JVD. CHEST: No chest wall deformity. LUNGS: Equal air entry with no crackles, wheeze, rhonchi or dullness. CVS: S1 and S2 normal with no audible murmur, regular rhythm. ABDOMEN: No hepatosplenomegaly, normal bowel sounds, no guarding or rigidity. SPINE: No scoliosis or deformity SKIN: No rashes CENTRAL NERVOUS SYSTEM: No focal deficits, tone is normal in all 4 extremities. EXTREMITIES: There is no peripheral edema. No clubbing, no cyanosis. Peripheral pulses are intact. - Labs CBC & Chem 7: 05/28/21 06:50 05/28/21 06:50 Assessment and Plan Plan: 1 Dyspnea secondary to bilateral pulmonary emboli, status post EKOS on 022, transitioned to Eliquis, the patient is taken to coagulation without any bleeding complications. She is hemodynamically stable. She is on room air oxygen. 2 Severe pulmonary hypertension echocardiogram with tricuspid regurgitation 3 History of hypertension 4 obesity with a BMI of 39 Plan: Patient is hemodynamically stable Patient is on room air oxygen Transitioned to Eliquis 10 mg by mouth twice a day Discharge home today.
== END 2021-05-30 14:20 | disposition home or self-care (01) | DRG 166 ==
LOC: EC 18:46 → 3SCARD 23:15 → OBSVTOIN 05-27 10:40 → 2SICU 05-27 17:07 → 3SCARD 05-28 15:30
PROVIDERS: ADMIT Internal Medicine Geriatric Medicine; ATTEND Internal Medicine Geriatric Medicine
DX: I26.99 Other pulmonary embolism without acute cor pulmonale (principal); J96.01 Acute respiratory failure with hypoxia; I21.4 Non-ST elevation (NSTEMI) myocardial infarction; F33.9 Major depressive disorder, recurrent, unspecified; I42.8 Other cardiomyopathies; H91.90 Unspecified hearing loss, unspecified ear; I08.1 Rheumatic disorders of both mitral and tricuspid valves; I27.20 Pulmonary hypertension, unspecified; I10 Essential (primary) hypertension; E04.1 Nontoxic single thyroid nodule; E66.01 Morbid (severe) obesity due to excess calories; Z68.39 Body mass index [BMI] 39.0-39.9, adult; R41.3 Other amnesia; F41.1 Generalized anxiety disorder; G47.33 Obstructive sleep apnea (adult) (pediatric); K21.9 Gastro-esophageal reflux disease without esophagitis; M48.00 Spinal stenosis, site unspecified; N32.81 Overactive bladder; Z20.822 Contact with and (suspected) exposure to COVID-19; Z79.01 Long term (current) use of anticoagulants; Z79.82 Long term (current) use of aspirin; Z79.899 Other long term (current) drug therapy; Z80.3 Family history of malignant neoplasm of breast; Z82.49 Family history of ischemic heart disease and other diseases of the circulatory system; Z86.711 Personal history of pulmonary embolism; Z87.891 Personal history of nicotine dependence; Z88.1 Allergy status to other antibiotic agents; Z91.040 Latex allergy status; Z96.652 Presence of left artificial knee joint
CPT/HCPCS: 36415; 36600; 37211; 71045; 71275; 75746; 76937; 80053; 82805; 83605; 83735; 83880; 84484; 85025; 85027; 85384; 85610; 85730; 87502; 87635; 93005; 93306; 93308; 93970; 93975; 96372; 99285